=== PATIENT | male | born 1935 | race Caucasian/White ===

== ENCOUNTER → 2020-03-14 | Outpatient (CLI) | payer MEDICARE ==
--- NOTE | 2020-03-14 11:41 | RADIOLOGY REPORT (SQ) ---
EXAM DESCRIPTION: COOKIE SWALLOW IMAGES COMPLETED DATE/TIME: 03/14/2020 11:12 am REASON FOR STUDY: DYSPHAGIA (R13.10) Y84.4 ASPIRATION OF FLUID CAUSE ABN REACT/COMPL, W/O MISADVN R 13.10 DYSPHAGIA, UNSPECIFIED Parkinson's disease, CVA COMPARISON: None. TECHNIQUE: Videofluoroscopic swallowing examination was performed in conjunction with speech patholo gy. Videofluoroscopic imaging was obtained and reviewed and these are the findings: RADIATION DOSE: 5.3 minutes of fluoroscopy was used. 3 images saved to PACS. LIMITATIONS: None FINDINGS: The patient was brought into the fluoro room and placed upright on a modified barium swall ow chair. The patient was then given multiple consistencies mixed with barium to swallow under live fluoroscopic video guidance. According to the Speech Pathologist there was laryngeal penetration and aspiration of thin liquids. Post swallow residual contrast within the vallecular. Very weak and de layed swallow. IMPRESSION: LARYNGEAL PENETRATION AND ASPIRATION OF THIN LIQUIDS. PLEASE SEE SPEECH PATHOLOGIST REPO RT FOR OTHER FINDINGS AND RECOMMENDATIONS. COMMENT: Quality ID [id number]: Final reports for procedures using fluoroscopy that document radiation exp osure indices, or exposure time and number of fluorographic images (if radiation exposure indices are not available) TECHNICAL DOCUMENTATION: JOB ID: [id number] 2010 [employer]- All Rights Reserved Reading location - IP/workstation name: [email or web address] [id number]
--- NOTE | 2020-03-14 14:34 | ST Modified Barium Swallow ---
Recommendation - Recommendations Recommendations: Patient is at risk of aspiration on all textures due to poor postural alignment and decreased pressure generation on the swallow. At this time, recommend thin liquids (no straws) and mechanical soft solids with ground meats or puree. Patient had very poor chewing pattern and increased oral time with solids, puree may be more efficient. Frequent oral care also recommended to reduce risk of pneumonia from an aspiration event. Medical Diagnoses - Medical Diagnoses Medical Diagnosis Description & ICD-10 Code(s): dysphagia following CVA Other Medical Diagnoses/Co-Morbidities: per patient paperwork from facility: Parkinson's disease - ICD-10 Tx Diagnosis Coding (1) Dysphagia, unspecified ICD-10 Code(s): R13.10 - DYSPHAGIA, UNSPECIFIED (2) Dysphagia following cerebrovascular accident (CVA) ICD-10 Code(s): I69.391 - DYSPHAGIA FOLLOWING CEREBRAL INFARCTION ST Modified Barium Swallow - General Date: 03/14/20 Referring Physician: Dr. Melody Wilkinson Risks/Precautions: Falls, Aspiration Date of Onset: 03/14/20 - unknown onset Reason for Referral: hx of aspiration - History -: Medical - Patient arrived from facility with JIG BU[employer]DER HELPER and . Patient unable to provide medical history, was minimally able to provide history. Paperwork sent from the facility reports that the patient has Parkinson's disease, as well as history of stroke. He is currently nectar thick liquids and mechanical soft solids. The patient apparently had an episode of aspiration pneumonia. He has received speech therapy at his facility. Medications: per facility paperwork: aspirin, atorvastatin, carbidopa-levodopa, donepezil, finasteride Allergies: none reported - Functional Status Prior Functional Status: INDEPENDENT: feeding Current Functional Limitations: feeding - on modified diet - Subjective Patient/caregiver goal(s): better swallow Cognitive-Linguistic Function: Severely Impaired Speech Intelligibility: Non-verbal Current Nutritional Means: PO Current PO diet: Soft - mechanical, Thickened liquids - nectar Current symptoms: Hx of asp. pneumonia Pain: no signs/symptoms of pain - Objective Assessment: Upright, Left Lateral - patient has very poor posture, pharyngeal region was horizontal for study - Food Trials Used Food trials used: Thin liquids, Tangerine thick liquids, Pureed, Regular The patient: Required Assist - Oral-Motor Skills Dentition: Partial - Of note, patient had thick coating of what appeared to be dried secretions on teeth and inside of mouth. - Assessment Labial closure: Adequate Leakage: Anterior Mastication: Lengthy, Uncoordinated - Reduced chewing pattern seen with david cracker trial, bolus kept largely anterior, required sip of liquid to adequately propel posteriorly. Oral stage: Moderately Impaired - Pharyngeal Stage Reduced Velopharyngeal Closure: no Reduced pressure generation: Yes Pre-swallow pooling in valleculae: Moderate Pre-Swallow pooling in pyriforms: None Reduced Thyro-Hyoid approximation: Yes Reduced epiglottic excursion: Yes Reduced pharyngeal peristalsis/contraction: Yes Multiple Swallows with: Ineffective Clearance Post-swallow residulas vallecular: Significant Post-Swallow residuals in pyriforms: Mild Post-Swallow Residuals: throughout pharynx - Fall Risk Assessment Medications/Conditions that increase fall risks include: Antidepressants, sedatives, anti-arrhythmic, diuretic, benzodiazipenes, neuroleptics. BP regulation problems, cardiac problems, balance or gait deficits, neurological problems. Is patient considered at risk for falls: yes Fall Risk Actions Taken: No action needed - Treatment / Educational Needs: Treatment/Education Needs: Treatment consisted of patient education on the role of the Speech Pathologist. Patient's plan of care and golas were communicated as well as scheduling and attendance policies. Recommendations for initial home program were shared. Patient demonstrated understanding and verbalized agreement. - Impression/Summary Laryngeal Penetration: Yes - x1 with cup sip of thin liquid Tracheal Aspiration: yes - with straw sip of thin liquid Patient presents with: Oral stage dysphagia - moderate, Pharyngeal stage dysph. - moderate to severe Risk of Aspiration: Moderate Evaluation and Findings: Patient demonstrates poor swallowing coordination, reduced timing, and poor pharyngeal constriction. This resulted in significant valleculae residue after the swallow, with reduced ability to clear. Although the patient did penetrate thin liquid via cup x1, the patient had very significant residue of thick liquids (nectar) in the valleculae after the swallow, placing patient at higher risk of aspiration after the swallow. Thin liquids left very little residue comparatively. As texture increased, residue in the valleculae and pharynx increased as well. Aspiration only occured with straw sip of thin liquid, patient demonstrated strong cough response which appeared to clear aspirated material. Of note, the patient's posture also places him at higher risk of aspiration, as he holds his head very forward, leaving airway open for residue to enter after the swallow. - Recommendations Solid diet recommendations: Pureed, Mechanical Soft - to be determined by facility COURT LIAISON. Mechanical soft may be too effortful to hand based on findings this day. Liquid Diet Modification: Thin Strict aspiration precautions: Yes Pt/Family education and followup with MD: Yes Dysphagia therapy with COURT LIAISON: f/u with current thera. Recommended techniques: Fully Upright During Meal, Small Bites and Sips, Alternate Bites/Sips Supervision: requires assistance Information, Precautions and Recommendations: Family Member (Written), Family Member (Verbal) Other recommendations: Recommend frequent oral care be provided to reduce risk of aspiration of bact eria, which increases the risk of developing an aspiration pneumonia. - Time Total Time: 30 - Plan of Care Strategies to optimize patient understanding include:: ongoing assessment of educational needs, implementation of educational strategies, and re-education. - - -: Thank you for the opportunity to work with this patient and his/her family. Should you have any questions about this patient's plan or progress, I can be reached at [phone].
== END ==
LOC: RAD 08:00
PROVIDERS: ATTEND Family Medicine
DX: R13.10 Dysphagia, unspecified (principal); G20 Parkinson's disease; Z86.73 Personal history of transient ischemic attack (TIA), and cerebral infarction without residual deficits; Y84.4 Aspiration of fluid as the cause of abnormal reaction of the patient, or of later complication, without mention of misadventure at the time of the procedure
CPT/HCPCS: 74230

== ENCOUNTER → 2020-03-18 | Outpatient (CLI) | payer MEDICARE ==
[2020-03-18 19:36] LABS: HEMATOCRIT 50.8 % (37.9-51.0); MEAN CORPUSCULAR HEMOGLOBIN 29.4 pg (27.0-33.4); MEAN CORPUSCULAR HGB CONC 33.5 g/dL (32.0-36.0); MEAN CORPUSCULAR VOLUME 88 fl (80-97); PLATELET COUNT 198 10^3/uL (150-450); RED BLOOD COUNT 5.79 10^6/uL (4.35-5.55); RED CELL DISTRIBUTION WIDTH 15.2 % (11.5-14.0); WHITE BLOOD COUNT 18.6 10^3/uL (4.0-10.5)
[2020-03-18 19:43] LABS: APPEARANCE,URINE CLOUDY; BILIRUBIN,URINE NEGATIVE (NEGATIVE); COLOR,URINE YELLOW; GLUCOSE, URINE >=500 mg/dL (NEGATIVE); KETONES,URINE 20 mg/dL (NEGATIVE); LEUKOCYTE ESTERASE,URINE NEGATIVE (NEGATIVE); NITRITE,URINE NEGATIVE (NEGATIVE); PROTEIN,URINE NEGATIVE (NEGATIVE); URIC ACID CRYSTALS,URINE MODERATE /HPF; URINE SPECIFIC GRAVITY 1.028; UROBILINOGEN,URINE NEGATIVE mg/dL (<2.0)
[2020-03-18 19:48] LABS: ALBUMIN 3.8 g/dL (3.5-5.0); ALKALINE PHOSPHATASE 122 U/L (38-126); ANION GAP 10 (5-19); ASPARTATE AMINO TRANSFERASE 18 U/L (17-59); BILIRUBIN,DIRECT 0.4 mg/dL (0.0-0.4); BILIRUBIN,TOTAL 1.4 mg/dL (0.2-1.3); BLOOD UREA NITROGEN 64 mg/dL (7-20); CALCIUM 9.4 mg/dL (8.4-10.2); CARBON DIOXIDE 26 mmol/L (22-30); CHLORIDE 110 mmol/L (98-107); POTASSIUM 4.5 mmol/L (3.6-5.0); TOTAL PROTEIN 6.2 g/dL (6.3-8.2)
[2020-03-18 20:08] LABS: ABSOLUTE LYMPHOCYTES# (MANUAL) 0.9 10^3/uL (0.5-4.7); ABSOLUTE MONOCYTES # (MANUAL) 0.9 10^3/uL (0.1-1.4); ANISOCYTOSIS SLIGHT; BAND NEUTROPHILS % (MANUAL) 1 % (3-5); BASOPHILS % (MANUAL) 0 % (0-2); EOSINOPHILS % (MANUAL) 0 % (0-6); LYMPHOCYTES % (MANUAL) 5 % (13-45); MONOCYTES % (MANUAL) 5 % (3-13); PLATELET COMMENT ADEQUATE; SEGMENTED NEUTROPHILS % (MAN) 89 % (42-78); TOTAL CELLS COUNTED 100
[2020-03-19 02:02] LABS: GLUCOSE 482 mg/dL (75-110)
== END ==
LOC: PNR 19:23
PROVIDERS: ATTEND Family Medicine
DX: R50.9 Fever, unspecified (principal); R53.83 Other fatigue
CPT/HCPCS: 80053; 81001; 85025; 87086; 87088; 87186

== ENCOUNTER 2020-03-19 12:57 | Inpatient (IN) | payer MEDICARE ==
[2020-03-19] MEDS ORDERED: NORMAL SALINE 1000 ML 1,000 ML IV ONE (13:14)
[2020-03-19 13:23] LABS: HEMATOCRIT 52.4 % (37.9-51.0); HEMOGLOBIN 17.4 g/dL (13.5-17.0); MEAN CORPUSCULAR HEMOGLOBIN 29.4 pg (27.0-33.4); MEAN CORPUSCULAR HGB CONC 33.1 g/dL (32.0-36.0); MEAN CORPUSCULAR VOLUME 89 fl (80-97); PLATELET COUNT 212 10^3/uL (150-450); RED BLOOD COUNT 5.91 10^6/uL (4.35-5.55); RED CELL DISTRIBUTION WIDTH 15.5 % (11.5-14.0)
[2020-03-19 13:34] LABS: INTERNATIONAL RATION (INR) 1.14; PROTHROMBIN TIME 14.7 SEC (11.4-15.4)
[2020-03-19 13:36] LABS: VENOUS BLOOD HCO3 24.9 mmol/L (20-32); VENOUS BLOOD PCO2 34.5 mmHg (35-63); VENOUS BLOOD PH 7.48 (7.30-7.42)
[2020-03-19 13:41] LABS: ALBUMIN 3.6 g/dL (3.5-5.0); ALKALINE PHOSPHATASE 111 U/L (38-126); ANION GAP 6 (5-19); ASPARTATE AMINO TRANSFERASE 21 U/L (17-59); BILIRUBIN,TOTAL 0.7 mg/dL (0.2-1.3); BLOOD UREA NITROGEN 58 mg/dL (7-20); CALCIUM 9.4 mg/dL (8.4-10.2); CARBON DIOXIDE 27 mmol/L (22-30); CHLORIDE 122 mmol/L (98-107); GLUCOSE 311 mg/dL (75-110); POTASSIUM 3.7 mmol/L (3.6-5.0); TOTAL PROTEIN 6.1 g/dL (6.3-8.2)
[2020-03-19 13:48] LABS: ABSOLUTE LYMPHOCYTES# (MANUAL) 0.7 10^3/uL (0.5-4.7); ABSOLUTE MONOCYTES # (MANUAL) 1.7 10^3/uL (0.1-1.4); BASOPHILS % (MANUAL) 0 % (0-2); EOSINOPHILS % (MANUAL) 0 % (0-6); LYMPHOCYTES % (MANUAL) 2 % (13-45); MONOCYTES % (MANUAL) 10 % (3-13); SEGMENTED NEUTROPHILS % (MAN) 86 % (42-78); TOTAL CELLS COUNTED 100
[2020-03-19 13:49] LABS: ANISOCYTOSIS SLIGHT; PLATELET COMMENT ADEQUATE
[2020-03-19] MEDS ORDERED: ETOMIDATE INJ/PF 20 MG/10 ML SDV IV ONE ×2 (14:00→22:00)
[2020-03-19] MEDS ORDERED: ROCURONIUM BROMIDE INJ 50 MG/5 ML VIAL IV ONE ×2 (14:00→22:00)
[2020-03-19] MEDS ORDERED: IPRATROPIUM/ALBUTEROL 0.5-2.5 MG/3 ML AMPUL NEB PRN (14:05)
[2020-03-19] MEDS ORDERED: ONDANSETRON 4 MG TAB.RAPDIS PO PRN (14:05)
[2020-03-19] MEDS ORDERED: ACETAMINOPHEN 325 MG TABLET PO PRN (14:05)
[2020-03-19] MEDS ORDERED: NORMAL SALINE 1000 ML 2,000 ML IV ONE (14:05)
[2020-03-19] MEDS ORDERED: GLUCAGON,HUMAN RECOMB 1 MG INJ IM PRN (14:11)
[2020-03-19] MEDS ORDERED: DEXTROSE 40% GEL 15 GM TUBE PO PRN ×2 (14:11)
[2020-03-19] MEDS ORDERED: DEXTROSE 50%-WATER 25 GM/50 ML DISP.SYRIN IV PRN ×2 (14:11)
[2020-03-19] MEDS ORDERED: PHARMACY COMMUNICATION ORDER MC NR (14:15)
--- NOTE | 2020-03-19 14:20 | RADIOLOGY REPORT (SQ) ---
EXAM DESCRIPTION: CHEST SINGLE VIEW IMAGES COMPLETED DATE/TIME: 03/19/2020 2:09 pm REASON FOR STUDY: sepsis alert; intubation COMPARISON: None. TECHNIQUE: Single frontal radiographic view of the chest acquired. NUMBER OF VIEWS: One view. LIMITATIONS: None. FINDINGS: LUNGS AND PLEURA: No pneumothorax. No consolidation or pleural effusion. MEDIASTINUM AND HILAR STRUCTURES: Age-appropriate contour. HEART AND VASCULAR STRUCTURES: Heart normal size. BONES: No acute findings. HARDWARE: Endotracheal tube tip is approximately 2 cm above the level of the arleen. OTHER: Small eventration of the left hemidiaphragm. IMPRESSION: Endotracheal tube tip is approximately 2 cm above the level of the arleen. No consolidat ion or pleural effusion. TECHNICAL DOCUMENTATION: JOB ID: [id number] [id number] 2010 [employer]- All Rights Reserved Reading location - IP/workstation name: [email or web address]
[2020-03-19 14:23] LABS: APPEARANCE,URINE CLOUDY; BILIRUBIN,URINE NEGATIVE (NEGATIVE); COLOR,URINE YELLOW; GLUCOSE, URINE >=500 mg/dL (NEGATIVE); KETONES,URINE TRACE mg/dL (NEGATIVE); PROTEIN,URINE 30 mg/dL (NEGATIVE); URIC ACID CRYSTALS,URINE RARE /HPF; URINE SPECIFIC GRAVITY 1.024; UROBILINOGEN,URINE NEGATIVE mg/dL (<2.0)
--- NOTE | 2020-03-19 14:35 | CRITICAL CARE ADMISSION REPORT ---
HPI Date:: 03/19/20 Time:: 13:30 Reason for ICU Reason:: Intubated for airway protection Admission Date/Time & PCP: Admission Date/Time: Primary Care Provider: TRELL KENNEY MD HPI: This patient is from a local [place]. He has a hx of Parkinson's disease, demaentia (Parkinson's dementia?), DM-II, dehydration, aspiration by a recent MBS. Family says he has not eaten well for about a month. Comes to the ED with fever, obtundation, mottling, high BG and is intubated for airway protection. Family provides much info. They are aware of how sick he is and that this could be a final illness. As such they are fine with intubation for now, no CPR or defibrillation. Hold treatment as is. They will try to find his living will. History obtained from:: ED MD Herrera, old records, family - Diagnosis/Plan (1) Dehydration Is this a current diagnosis for this admission?: Yes Plan: He is extremely dehydrated causing mottling of extremities and obtundation. (2) Airway compromise Is this a current diagnosis for this admission?: Yes Plan: His GCS is 3 and is intubated. (3) ARF (acute renal failure) Qualifiers: Acute renal failure type: unspecified Qualified Code(s): N17.9 - Acute kidney failure, unspecified Is this a current diagnosis for this admission?: Yes Plan: His BZUN is 58, Cr 1.3. He is emaciated and at age 84 this is likely significant. (4) Diabetes type 2, uncontrolled Qualifiers: Glycemic state: with hyperglycemia Qualified Code(s): E11.65 - Type 2 diabetes mellitus with hyperglycemia Is this a current diagnosis for this admission?: Yes Plan: His BG yesterday was 442. Not done yet today. (5) Dysphagia, unspecified Qualifiers: Dysphagia type: pharyngeal phase Qualified Code(s): R13.13 - Dysphagia, p haryngeal phase Is this a current diagnosis for this admission?: Yes Plan: Recent MBS suggested aspiration. Common with Parkinson's will start NG TF. Plan Summary: The family is accepting of intubation. He is otherwise DNR. I have explained this could be a terminal illness. He needs much fluid. Insulin, nutrition and may still not do well. Past Medical History Cardiac Medical History: Reports: Hypertension - not lately Denies: Myocardial Infarction Pulmonary Medical History: Denies: Asthma Neurological Medical History: Denies: Seizures GI Medical History: Denies: Hepatitis, Hiatal Hernia Hematology: Denies: Anemia, Sickle Cell Disease Past Surgical History Past Surgical History: Denies: Pacemaker Social/Family History - Social History Lives with: [facility] Smoking Status: Unknown if Ever Smoked Frequency of Alcohol Use: None Hx Recreational Drug Use: No - Medication/Allergies Home Medications: Atorvastatin Calcium 40 mg PO DAILY 12/23/14 Finasteride 5 mg PO DAILY 12/23/14 Glipizide [Glipizide ER] 10 mg PO DAILY 12/23/14 Lisinopril 5 mg PO DAILY 12/23/14 Sitagliptin Phos/Metformin HCl [Janumet 50-500 mg Tablet] 1 each PO BID 12/23/14 Allergies/Adverse Reactions: No Known Allergies Allergy (Unverified 12/23/14 10:01) Review of Systems ROS unobtainable: Due to mental status Physical Exam Vital Signs: Temp Pulse Resp BP Pulse Ox 101.2 F H 126 H 14 128/74 H 100 03/19/20 13:22 03/19/20 13:22 03/19/20 14:05 03/19/20 14:05 03/19/20 14:05 Intake & Output 03/18/20 03/19/20 03/20/20 06:59 06:59 06:59 Weight 60.4 kg Weight/Height Weight 60.4 kg General appearance: PRESENT: thin, other - Obtunded Head exam: PRESENT: atraumatic, normocephalic Eye exam: PRESENT: conjunctiva pink, EOMI, PERRLA. ABSENT: scleral icterus Ear exam: PRESENT: normal external ear exam Mouth exam: PRESENT: dry mucosa, other - Much dried food particles blocking glottic area. Teeth exam: PRESENT: dental caries, edentulous - Upper. Respiratory exam: PRESENT: clear to auscultation osmani Cardiovascular exam: PRESENT: RRR, tachycardia. ABSENT: diastolic murmur, rubs, systolic murmur GI/Abdominal exam: PRESENT: normal bowel sounds, soft. ABSENT: distended, guarding, mass, organolmegaly, rebound, tenderness Rectal exam: PRESENT: deferred Gentrourinary exam: PRESENT: indwelling catheter Extremities exam: PRESENT: other - Emaciated with poor muscle mass. Neurological exam: PRESENT: altered, CN II-XII grossly intact, other - Obtunded. Skin exam: PRESENT: mottled - Mottling in knees, feet, arms Tubes/Lines: PRESENT: Endotracheal Tube, Nasogastic Tube Laboratory/Radiographs Laboratory Results: 03/19/20 13:07 03/19/20 13:07 03/19/20 03/19/20 03/19/20 13:07 13:07 13:07 WBC 17.0 H RBC 5.91 H Hgb 17.4 H Hct 52.4 H MCV 89 MCH 29.4 MCHC 33.1 RDW 15.5 H Plt Count 212 Seg Neutrophils % Not Reportable VBG pH 7.48 H VBG pCO2 34.5 L VBG HCO3 24.9 VBG Base Excess 2.0 Sodium 154.5 H Potassium 3.7 Chloride 122 H Carbon Dioxide 27 Anion Gap 6 BUN 58 H Creatinine 1.27 H Est GFR ( Amer) > 60 Glucose 311 H Lactic Acid Calcium 9.4 Total Bilirubin 0.7 AST 21 Alkaline Phosphatase 111 Total Protein 6.1 L Albumin 3.6 Lipase 454.4 H 03/19/20 13:07 WBC RBC Hgb Hct MCV MCH MCHC RDW Plt Count Seg Neutrophils % VBG pH VBG pCO2 VBG HCO3 VBG Base Excess Sodium Potassium Chloride Carbon Dioxide Anion Gap BUN Creatinine Est GFR ( Amer) Glucose Lactic Acid 2.2 H Calcium Total Bilirubin AST Alkaline Phosphatase Total Protein Albumin Lipase 03/19/20 13:07 Troponin I 0.053 Impressions: Extreme dehydration, poor mental status. Possible terminal illness. All labs, radiographs, diagnostic studies and EKGs were personally reviewed: No In addition, reports of radiographic and diagnostic studies were read: No Critical Time Critical Time (minutes): 40 -: The care of a critically ill patient is dynamic. This note represents a static moment in the admission process. Orders and treatments may be given simultaneously and urgently, and time is not retention representative of the treatment process. This patient requires Critical Care secondary to life threatening organ or limb dysfunction. Without Critical Care services, the patient is at risk for increased mortality and morbidity.
--- NOTE | 2020-03-19 14:37 | Progress Note ---
Provider Note Provider Note: Patient intubated with # 7.5 ETT at 24 cm at the lips. Etomidate 10mg and rocuronium 40mg.
[2020-03-19] MEDS: RINGERS SOLUTION,LACTATED 1,000 ML IV PRN (14:53)
[2020-03-19] MEDS: PROPOFOL 1,000 MG/100 ML INFUS..BTL IV PRN (15:02)
--- NOTE | 2020-03-19 15:17 | ER Document Report ---
Entered by MIRANDA ROBLES SCRIBE 03/19/20 1410 Acting as scribe for:ZAY ALLEN MD ED General - General Chief Complaint: Altered Mental Status Stated Complaint: ALTERED MENTAL STATUS/FEVER Information source: Emergency Med Personnel Cannot obtain history due to: Altered mental status Notes: This 84 year old male patient presents to the emergency department today with arrival by EMS. History provided by outside records and EMS personnel due to patient's mental status. Patient lives in a nursing facility and was reported to be lethargic yesterday. Patient was given Rocephin and Tylenol by the nursing facility staff. Patient had a chest x-ray yesterday with negative results, and lab work done, including a white count of 1800 and creatinine of 1.3. Patient has a history of dementia, Parkinson's, and strokes. Patient arrived by EMS and became unresponsive en route with x2 apnea episodes. Patient has also been more bed bound recently. TRAVEL OUTSIDE OF THE [place] IN LAST 30 DAYS: No - Related Data Allergies/Adverse Reactions: No Known Allergies Allergy (Unverified 12/23/14 10:01) Past Medical History - General Information source: Emergency Med Personnel, [facility] Records Cannot obtain history due to: Altered mental status - Social History Smoking Status: Unknown if Ever Smoked Frequency of alcohol use: None Drug Abuse: None Lives with: Skilled Nursing Family History: Reviewed & Not Pertinent - Past Medical History Cardiac Medical History: Reports: Hx Hypertension - not lately Neurological Medical History: Reports: Hx Cerebrovascular Accident, Hx Parkinson's Disease Endocrine Medical History: Reports: Hx Diabetes Mellitus Type 1 Psychiatric Medical History: Reports: Hx Dementia Review of Systems - Review of Systems -: Yes ROS unobtainable due to patient's medical condition Physical Exam - Vital signs Vitals: Resp BP Pulse Ox 30 H 119/95 H 92 03/19/20 12:57 03/19/20 12:57 03/19/20 12:57 - General Notes: Patient is afebrile. Patient intubated by Dr. Escobedo. - HEENT Head: Normocephalic, Atraumatic Eyes: Normal Pupils: Pinpoint Mucous membranes: Dry Notes: Dry, thick, brown food found blocking the oropharynx. - Respiratory Chest status: Nontender Notes: Lungs are clear to auscultation bilaterally. Oxygen saturation on room air is 92%. - Cardiovascular Rhythm: Regular Heart sounds: Normal auscultation Murmur: No - Abdominal Inspection: Other - Soft Distension: No distension Tenderness: Nontender - Genitourinary Notes: Urine from urinary cath is dark. - Extremities General upper extremity: Normal inspection. No: Edema General lower extremity: Normal inspection. No: Edema - Neurological Notes: Patient has a history of Parkinson's and Dementia. Patient was briefly aroused by extreme stimuli. - Skin Skin Temperature: Warm Skin Moisture: Dry Skin Color: Normal Course - Re-evaluation Re-evalutation: 03/19/20 15:02 Patient is comatose and most difficult to arouse. Patient is having shallow respirations maintaining a sat of 92% at this time. Noxious stimuli with sternal rub does not appear to arouse patient. Discussed with Dr. Ochoa, head animal keeper, who recommended if patient is unable to to manage his airway then he must be intubated for airway protection in the face of a full code patient. Patient improved his sats up to 97 percent after stimulation with stronger noxious stimulus on chest wall. However patient still remain comatose and and therefore intubation was performed by Dr. Ochoa. Of note noted during the intubation by Dr. Gallego patient had concretions of pured food that had amounted over a period of time in the posterior oropharynx that had dried up and adhesed to his oral pharyngeal mucosa. A pair of Bing forceps was needed in order to remove debris in order to see the epiglottic opening. 03/19/20 15:05 - Vital Signs Vital signs: Temp Pulse Resp BP Pulse Ox 101.2 F H 126 H 14 121/81 99 03/19/20 13:22 03/19/20 13:22 03/19/20 14:40 03/19/20 14:40 03/19/20 14:40 - Laboratory Result Diagrams: 03/19/20 13:07 03/19/20 13:07 Laboratory results interpreted by me: 03/19/20 03/19/20 03/19/20 13:07 13:07 13:07 WBC 17.0 H RBC 5.91 H Hgb 17.4 H Hct 52.4 H RDW 15.5 H Seg Neuts % (Manual) 86 H Lymphocytes % (Manual) 2 L Abs Neuts (Manual) 14.6 H Abs Monocytes (Manual) 1.7 H VBG pH 7.48 H VBG pCO2 34.5 L Sodium 154.5 H Chloride 122 H BUN 58 H Creatinine 1.27 H Est GFR (MDRD) Non-Af 54 L Glucose 311 H Lactic Acid Total Protein 6.1 L Lipase 454.4 H Urine Protein Urine Glucose (UA) Urine Ketones Urine Blood 03/19/20 03/19/20 13:07 14:04 WBC RBC Hgb Hct RDW Seg Neuts % (Manual) Lymphocytes % (Manual) Abs Neuts (Manual) Abs Monocytes (Manual) VBG pH VBG pCO2 Sodium Chloride BUN Creatinine Est GFR (MDRD) Non-Af Glucose Lactic Acid 2.2 H Total Protein Lipase Urine Protein 30 H Urine Glucose (UA) >=500 H Urine Ketones TRACE H Urine Blood SMALL H 03/19/20 15:04 Patient laboratories show an elevated white blood cell count of 17,000 hemoglobin 17 hematocrit 52 hemoconcentrated with a sodium of 154 a BUN of 58 and a creatinine 1.2 lipase 454 lactic acid 2.2 a small amount of blood noted in the urine. 03/19/20 15:08 Patient also has an elevated troponin consistent with troponin leak during the failure to thrive state that patient is in this time. - Diagnostic Test Radiology reviewed: Image reviewed, Reports reviewed Radiology results interpreted by me: 03/19/20 15:06 Chest x-ray shows no acute process no evidence for infiltrate noted. ET tube in position. - EKG Interpretation by Me Additional EKG results interpreted by me: 03/19/20 15:07 12-lead EKG shows sinus tachycardia rate of 135 with an irregular rate 114 and 165 borderline left axis deviation and repull abnormality probably rate related. Critical Care Note - Critical Care Note Total time excluding time spent on procedures (mins): 35 - Immediate response to patient's arrival to determine patient's respiratory status and decisions about intubation. Patient neurologically comatose and barely arousable with concerns for stroke dehydration infection loss of blood etc. Coordination with the head animal keeper Dr. Ching regarding intubation the patient and discussing with family members CODE STATUS. Discharge - Discharge Clinical Impression: Failure to thrive in adult, Respiratory failure requiring intubation, Dehydration, Airway compromise Diabetes type 2, uncontrolled Qualifiers: Glycemic state: with hyperglycemia Qualified Code(s): E11.65 - Type 2 diabetes mellitus with hyperglycemia ARF (acute renal failure) Qualifiers: Acute renal failure type: unspecified Qualified Code(s): N17.9 - Acute kidney failure, unspecified Condition: Critical Disposition: ADMITTED INPATIENT Admitting Provider: Gergg ([facility] Boarding [facility]) - Awake from not scheduled Unit Admitted: ICU I personally performed the services described in the documentation, reviewed and edited the documentation which was dictated to the scribe in my presence, and it accurately records my words and actions.
[2020-03-19] MEDS: PANTOPRAZOLE SODIUM 40 MG VIAL IV SCH (15:30)
[2020-03-19] MEDS: HEPARIN SOD (PORCINE) 5,000 UNIT/ML 1 ML VIAL SUBCUT SCH ×2 (15:30→21:10)
[2020-03-19] MEDS: INSULIN LISPRO 100 UNIT/ML 3 ML VIAL SUBCUT SCH ×2 (15:31→18:08)
[2020-03-19] MEDS ORDERED: INSULIN LISPRO 100 UNIT/ML 3 ML VIAL ONE (15:35)
[2020-03-19 15:58] LABS: ARTERIAL BLOOD BASE EXCESS -0.6 mmol/L; ARTERIAL BLOOD FIO2 30%; ARTERIAL BLOOD H2CO3 1.12 mmol/L (1.05-1.35); ARTERIAL BLOOD HCO3 23.5 mmol/L (20-24); ARTERIAL BLOOD O2 SATURATION 97.7 % (94-98); ARTERIAL BLOOD PCO2 37.2 mmHg (35-45); ARTERIAL BLOOD PH 7.42 (7.35-7.45); ARTERIAL BLOOD PO2 100.7 mmHg (80-100); ARTERIAL BLOOD TOTAL CO2 24.6 mmol/L (23-27)
--- NOTE | 2020-03-19 19:10 | EKG REPORT ---
SEVERITY:- ABNORMAL ECG - SINUS TACHYCARDIA WITH PACS [id number] BORDERLINE LEFT AXIS DEVIATION REPOLARIZATION ABNORMALITY, PROB RATE RELATED : Confirmed by: Leander Camara MD 19-Mar-2020 19:09:52
[2020-03-20] MEDS: RINGERS SOLUTION,LACTATED 1,000 ML IV PRN ×3 (00:48→16:51)
[2020-03-20] MEDS: INSULIN LISPRO 100 UNIT/ML 3 ML VIAL SUBCUT SCH ×4 (00:49→18:09)
[2020-03-20 04:44] LABS: ABSOLUTE BASOPHILS # (AUTO) 0.1 10^3/uL (0.0-0.2); ABSOLUTE LYMPHOCYTES (AUTO) 0.7 10^3/uL (0.5-4.7); ABSOLUTE MONOCYTES (AUTO) 1.3 10^3/uL (0.1-1.4); ABSOLUTE NEUT (AUTO) 9.6 10^3/uL (1.7-8.2); BASOPHILS % (AUTO) 0.5 % (0-2); EOSINOPHILS % (AUTO) 0.2 % (0-6); HEMATOCRIT 42.9 % (37.9-51.0); MEAN CORPUSCULAR HEMOGLOBIN 29.6 pg (27.0-33.4); MEAN CORPUSCULAR HGB CONC 33.5 g/dL (32.0-36.0); MEAN CORPUSCULAR VOLUME 88 fl (80-97); MONOCYTES % (AUTO) 10.8 % (3-13); PLATELET COUNT 120 10^3/uL (150-450); RED BLOOD COUNT 4.86 10^6/uL (4.35-5.55); RED CELL DISTRIBUTION WIDTH 15.1 % (11.5-14.0); SEGMENTED NEUTROPHILS % (AUTO) 82.5 % (42-78); TOTAL CELLS COUNTED % (AUTO) 100 %; WHITE BLOOD COUNT 11.6 10^3/uL (4.0-10.5)
[2020-03-20 04:46] LABS: HEMOGLOBIN 14.4 g/dL (13.5-17.0)
[2020-03-20 05:07] LABS: BLOOD UREA NITROGEN 39 mg/dL (7-20); CALCIUM 8.5 mg/dL (8.4-10.2); GLUCOSE 228 mg/dL (75-110); POTASSIUM 3.1 mmol/L (3.6-5.0)
[2020-03-20 05:13] LABS: CARBON DIOXIDE 25 mmol/L (22-30); CHLORIDE 126 mmol/L (98-107)
[2020-03-20] MEDS: HEPARIN SOD (PORCINE) 5,000 UNIT/ML 1 ML VIAL SUBCUT SCH ×3 (05:19→21:25)
[2020-03-20 05:22] LABS: ANION GAP 3 (5-19)
[2020-03-20] MEDS: POTASSI CL 20 MEQ/50 ML RIDER 20 MEQ/50 ML RTUPB IV SCH ×2 (06:11→08:42)
--- NOTE | 2020-03-20 07:02 | RADIOLOGY REPORT (SQ) ---
EXAM DESCRIPTION: X-ray single view chest. CLINICAL HISTORY: 84 years Male, Respiratory Failure COMPARISON: 03/19/2020 TECHNIQUE: Single portable x-ray view of the chest performed on 03/20/2020 at 6:09 AM FINDINGS: The lungs are well expanded. No airspace process is identified. There is minimal scarring or atelectasis in the right lung base. There is no evidence of a pneumothorax. The cardiac silhouette is normal in size and configuration. The mediastinal contours are normal. No acute osseous abnormality is identified. There are degenerative changes of both shoulders, greater on the right. No focal soft tissue abnormalities are seen. Oral contrast is noted in the colon. Lines and tubes: The tip of the endotracheal tube terminates in the trachea just above the arleen. IMPRESSION: 1. Minimal scarring or atelectasis in the right lung base. 2. Endotracheal tube tip terminates just above the arleen.
[2020-03-20] MEDS ORDERED: ACETAMINOPHEN 325 MG TABLET NG PRN (09:30)
[2020-03-20] MEDS ORDERED: ONDANSETRON 4 MG TAB.RAPDIS NG PRN (09:30)
[2020-03-20] MEDS: PANTOPRAZOLE SODIUM 40 MG VIAL IV SCH (10:10)
--- NOTE | 2020-03-20 10:42 | CDI QUERY ---
CDI Query CDI Review: Dear Provider Please further specify reason for intubation: RESPIRATORY FAILURE? RESPIRATORY DISTRESS? IMPENDING RESPIRATORY FAILURE? RESPIRATORY COLLAPSE? Clinical data: intubation GCS 3 profound obtundation aspiration Thanks, Babita Hunt [phone]
--- NOTE | 2020-03-20 13:45 | RADIOLOGY REPORT (SQ) ---
EXAM DESCRIPTION: KUB/ABDOMEN (SINGLE VIEW) IMAGES COMPLETED DATE/TIME: 03/20/2020 1:38 pm REASON FOR STUDY: NG tube placement COMPARISON: EARLIER THE SAME DAY. NUMBER OF VIEWS: One view. TECHNIQUE: Supine radiographic image of the abdomen acquired. LIMITATIONS: None. FINDINGS: LIMITED VIEW THE ABDOMEN WAS SUBMITTED FOR NG TUBE PLACEMENT. THE NG TUBE TIP LIES JUST B ELOW THE LEFT HEMIDIAPHRAGM. IT APPEARS TO BE LOOPED IN THE BODY OF THE STOMACH. IMPRESSION: NG TUBE DESCRIBED. TECHNICAL DOCUMENTATION: JOB ID: [id number] 2010 [employer]- All Rights Reserved Reading location - IP/workstation name: [email or web address]
--- NOTE | 2020-03-20 13:50 | RADIOLOGY REPORT (SQ) ---
EXAM DESCRIPTION: KUB/ABDOMEN (SINGLE VIEW) IMAGES COMPLETED DATE/TIME: 03/20/2020 1:40 pm REASON FOR STUDY: Check Placement of NG Tube COMPARISON: None. NUMBER OF VIEWS: One view. TECHNIQUE: Supine radiographic image of the abdomen acquired. LIMITATIONS: None. FINDINGS: Limited view the abdomen is obtained for NG tube placement. NG tube tip lies in the mid t he distal esophagus an will need to be advanced prior to use. There is contrast in the visualize:. Endotracheal tube is directed toward the right mainstem bronchus. IMPRESSION: NG tube needs to be repositioned as described. TECHNICAL DOCUMENTATION: JOB ID: [id number] 2010 [employer]- All Rights Reserved Reading location - IP/workstation name: [email or web address]
[2020-03-20] MEDS: PROPOFOL 1,000 MG/100 ML INFUS..BTL IV PRN (15:53)
--- NOTE | 2020-03-20 18:34 | PDOC CRITICAL CARE PROG REPORT ---
General Date:: 03/20/20 ICU Day:: 2 Ventilator Day:: 2 Hospital Day:: 2 Resuscitation Status: Do Not Resuscitate Events in the past 12 to 24 Hours:: 03/20: [facility] with a suspected aspiration event. Intubated. Of note, family declared that the patient was DNR. If he is able to liberate from mechanical ventilatory support, this will be a one-way extubation. Sedated with propofol. Mildly hypotensive but maintaining MAP greater than 70. Review of systems relevant to events:: Constitutional/renal: Dehydration, acute renal failure Respiratory: Aspiration pneumonia, airway compromise Endocrine: Type 2 diabetes Neurologic: Parkinson's disease with dementia Reason for ICU Addmission:: Intubated for airway protection - Medications: Medications reviewed and adjusted accordingly: Yes Sedation:: Propofol Physical Exam Vital Signs: Temp Pulse Resp BP Pulse Ox 99.0 F 97 19 112/82 93 03/19/20 18:13 03/19/20 19:30 03/20/20 10:24 03/20/20 10:24 03/20/20 10:24 Intake & Output 03/19/20 03/20/20 03/21/20 06:59 06:59 06:59 Intake Total 4044 70 Output Total 635 40 Balance 3409 30 Weight 60.8 kg Weight/Height Weight 60.8 kg Height 1.8 m General appearance: PRESENT: no acute distress, well-developed, well-nourished Head exam: PRESENT: atraumatic, normocephalic Eye exam: PRESENT: conjunctiva pink, EOMI, PERRLA. ABSENT: scleral icterus Mouth exam: PRESENT: dry mucosa, tongue midline Neck exam: ABSENT: carotid bruit, JVD, lymphadenopathy, thyromegaly Respiratory exam: PRESENT: prolonged expiratory phas, rales, rhonchi. ABSENT: accessory muscle use Cardiovascular exam: PRESENT: RRR. ABSENT: diastolic murmur, rubs, systolic murmur Pulses: PRESENT: normal dorsalis pedis pul GI/Abdominal exam: PRESENT: normal bowel sounds, soft. ABSENT: distended, guarding, mass, organolmegaly, rebound, tenderness Gentrourinary exam: PRESENT: indwelling catheter Extremities exam: PRESENT: full ROM. ABSENT: calf tenderness, clubbing, pedal edema Neurological exam: PRESENT: reflexes normal, CN II-XII grossly intact, motor sensory deficit - Does not follow commands at the left upper extremity. Skin exam: PRESENT: dry, intact, other - Scattered patches of blanchable purpura, particularly at the extremities (most notable at the knees, shins and feet). ABSENT: cyanosis, rash, warm Tubes/Lines: PRESENT: Endotracheal Tube Laboratory/Radiographs Laboratory Results: 03/20/20 04:23 03/20/20 04:23 03/19/20 03/19/20 03/19/20 13:07 13:07 13:07 WBC 17.0 H RBC 5.91 H Hgb 17.4 H Hct 52.4 H MCV 89 MCH 29.4 MCHC 33.1 RDW 15.5 H Plt Count 212 Seg Neutrophils % Not Reportable Carbonic Acid HCO3/H2CO3 Ratio ABG pH ABG pCO2 ABG pO2 ABG HCO3 ABG O2 Saturation ABG Base Excess VBG pH 7.48 H VBG pCO2 34.5 L VBG HCO3 24.9 VBG Base Excess 2.0 FiO2 Sodium 154.5 H Potassium 3.7 Chloride 122 H Carbon Dioxide 27 Anion Gap 6 BUN 58 H Creatinine 1.27 H Est GFR ( Amer) > 60 Glucose 311 H Lactic Acid Calcium 9.4 Total Bilirubin 0.7 AST 21 Alkaline Phosphatase 111 Total Protein 6.1 L Albumin 3.6 Triglycerides Lipase 454.4 H Urine Color Urine Appearance Urine pH Ur Specific [place] Urine Protein Urine Glucose (UA) Urine Ketones Urine Blood Urine RBC (Auto) 03/19/20 03/19/20 03/19/20 13:07 13:07 14:04 WBC RBC Hgb Hct MCV MCH MCHC RDW Plt Count Seg Neutrophils % Carbonic Acid HCO3/H2CO3 Ratio ABG pH ABG pCO2 ABG pO2 ABG HCO3 ABG O2 Saturation ABG Base Excess VBG pH VBG pCO2 VBG HCO3 VBG Base Excess FiO2 Sodium Potassium Chloride Carbon Dioxide Anion Gap BUN Creatinine Est GFR ( Amer) Glucose Lactic Acid 2.2 H Calcium Total Bilirubin AST Alkaline Phosphatase Total Protein Albumin Triglycerides 144 Lipase Urine Color YELLOW Urine Appearance CLOUDY Urine pH 5.0 Ur Specific [place] 1.024 Urine Protein 30 H Urine Glucose (UA) >=500 H Urine Ketones TRACE H Urine Blood SMALL H Urine RBC (Auto) 1 03/19/20 03/19/20 03/19/20 15:40 15:45 18:30 WBC RBC Hgb Hct MCV MCH MCHC RDW Plt Count Seg Neutrophils % Carbonic Acid 1.12 HCO3/H2CO3 Ratio 20:1 ABG pH 7.42 ABG pCO2 37.2 ABG pO2 100.7 H ABG HCO3 23.5 ABG O2 Saturation 97.7 ABG Base Excess -0.6 VBG pH VBG pCO2 VBG HCO3 VBG Base Excess FiO2 30% Sodium Potassium Chloride Carbon Dioxide Anion Gap BUN Creatinine Est GFR ( Amer) Glucose Lactic Acid 2.1 2.1 Calcium Total Bilirubin AST Alkaline Phosphatase Total Protein Albumin Triglycerides Lipase Urine Color Urine Appearance Urine pH Ur Specific [place] Urine Protein Urine Glucose (UA) Urine Ketones Urine Blood Urine RBC (Auto) 03/20/20 03/20/20 04:23 04:23 WBC 11.6 H RBC 4.86 Hgb 14.4 D Hct 42.9 MCV 88 MCH 29.6 MCHC 33.5 RDW 15.1 H Plt Count 120 L Seg Neutrophils % 82.5 H Carbonic Acid HCO3/H2CO3 Ratio ABG pH ABG pCO2 ABG pO2 ABG HCO3 ABG O2 Saturation ABG Base Excess VBG pH VBG pCO2 VBG HCO3 VBG Base Excess FiO2 Sodium 153.8 H Potassium 3.1 L Chloride 126 H Carbon Dioxide 25 Anion Gap 3 L BUN 39 H Creatinine 0.98 Est GFR ( Amer) > 60 Glucose 228 H Lactic Acid Calcium 8.5 Total Bilirubin AST Alkaline Phosphatase Total Protein Albumin Triglycerides Lipase Urine Color Urine Appearance Urine pH Ur Specific [place] Urine Protein Urine Glucose (UA) Urine Ketones Urine Blood Urine RBC (Auto) 03/19/20 03/20/20 13:07 04:23 Troponin I 0.053 NT-Pro-B Natriuret Pep 539 H Impressions: Chest X-Ray 03/20/20 06:00 IMPRESSION: 1. Minimal scarring or atelectasis in the right lung base. 2. Endotracheal tube tip terminates just above the arleen. All labs, radiographs, diagnostic studies and EKGs were personally reviewed: Yes In addition, reports of radiographic and diagnostic studies were read: Yes Assessment and Plan - Diagnosis (1) Respiratory failure requiring intubation Is this a current diagnosis for this admission?: Yes Plan: Continue duo nebs. Tracheal aspirate for Gram stain, C/S. Start Zosyn/vancomycin for empiric coverage of aspiration. Increase PEEP to 8. (2) Abnormal chest x-ray Is this a current diagnosis for this admission?: Yes Plan: Atelectasis versus infiltrate in the right lung base. (3) Elevated troponin I level Is this a current diagnosis for this admission?: Yes Plan: Trend troponin. (4) Elevated brain natriuretic peptide (BNP) level Is this a current diagnosis for this admission?: Yes Plan: 2D echo. (5) ARF (acute renal failure) Qualifiers: Acute renal failure type: unspecified Qualified Code(s): N17.9 - Acute kidney failure, unspecified Is this a current diagnosis for this admission?: Yes Plan: Monitor urine output. Avoid nephrotoxic medications. Renal dosing as needed. (6) Dehydration with hypernatremia Is this a current diagnosis for this admission?: Yes Plan: Improved. Hold LR @ 100 mL/h. (7) Thrombocytopenia Is this a current diagnosis for this admission?: Yes Plan: Monitor platelets. Thrombocytopenia did develop after initiation of heparin for DVT prophylaxis. (8) Diabetes type 2, uncontrolled Qualifiers: Glycemic state: with hyperglycemia Qualified Code(s): E11.65 - Type 2 diabetes mellitus with hyperglycemia Is this a current diagnosis for this admission?: Yes (9) Hypokalemia Is this a current diagnosis for this admission?: Yes Plan: Replete. NG/OG tube placement to allow enteral potassium supplements. (10) Person under investigation for COVID-19 Is this a current diagnosis for this admission?: Yes Critical Time Critical Time (minutes): 60 Level of Care: ICU -: 1. The care of a critical patient is a dynamic process. This note is a sales representative metals synopsis but static in nature. The timeframe for treatments given in order is not necessarily the actual time these treatments may have been done. 2. This patient requires critical care secondary to ongoing requirements for therapy not offered or safe outside the critical care environment. Transfer to a lower level of care will result in altered life or limb morbidity and mortality. 3. Multidisciplinary rounds completed. 4. ABCDE bundle addressed.
[2020-03-21] MEDS: HEPARIN SOD (PORCINE) 5,000 UNIT/ML 1 ML VIAL SUBCUT SCH ×3 (05:15→21:13)
[2020-03-21] MEDS: INSULIN LISPRO 100 UNIT/ML 3 ML VIAL SUBCUT SCH ×4 (05:18→18:04)
[2020-03-21 05:57] LABS: ABSOLUTE EOSINOPHILS # (AUTO) 0.1 10^3/uL (0.0-0.6); ABSOLUTE LYMPHOCYTES (AUTO) 0.7 10^3/uL (0.5-4.7); ABSOLUTE MONOCYTES (AUTO) 0.8 10^3/uL (0.1-1.4); ABSOLUTE NEUT (AUTO) 7.3 10^3/uL (1.7-8.2); BASOPHILS % (AUTO) 0.4 % (0-2); EOSINOPHILS % (AUTO) 1.7 % (0-6); HEMATOCRIT 40.2 % (37.9-51.0); HEMOGLOBIN 13.3 g/dL (13.5-17.0); LYMPHOCYTES % (AUTO) 7.6 % (13-45); MEAN CORPUSCULAR HEMOGLOBIN 29.4 pg (27.0-33.4); MEAN CORPUSCULAR HGB CONC 33.1 g/dL (32.0-36.0); MEAN CORPUSCULAR VOLUME 89 fl (80-97); MONOCYTES % (AUTO) 9.1 % (3-13); PLATELET COUNT 112 10^3/uL (150-450); RED BLOOD COUNT 4.53 10^6/uL (4.35-5.55); RED CELL DISTRIBUTION WIDTH 15.1 % (11.5-14.0); SEGMENTED NEUTROPHILS % (AUTO) 81.2 % (42-78); TOTAL CELLS COUNTED % (AUTO) 100 %
[2020-03-21] MEDS ORDERED: PIPERACILLIN/TAZOBACTAM 4.5 GM VIAL IV SCH (06:00)
[2020-03-21] MEDS ORDERED: CARBIDOPA/LEVODOPA 25-100 MG TABLET PO SCH (06:00)
[2020-03-21] MEDS ORDERED: PIPERACILLIN/TAZOBACTAM 4.5 GM VIAL IV ONE (06:03)
[2020-03-21 06:16] LABS: BLOOD UREA NITROGEN 31 mg/dL (7-20); GLUCOSE 221 mg/dL (75-110); PHOSPHORUS 2.7 mg/dL (2.5-4.5); POTASSIUM 3.3 mmol/L (3.6-5.0)
[2020-03-21 06:21] LABS: CARBON DIOXIDE 28 mmol/L (22-30); CHLORIDE 121 mmol/L (98-107)
[2020-03-21 06:33] LABS: ARTERIAL BLOOD BASE EXCESS 0.6 mmol/L; ARTERIAL BLOOD FIO2 30%; ARTERIAL BLOOD H2CO3 1.05 mmol/L (1.05-1.35); ARTERIAL BLOOD O2 SATURATION 98.2 % (94-98); ARTERIAL BLOOD PCO2 34.9 mmHg (35-45); ARTERIAL BLOOD PH 7.46 (7.35-7.45); ARTERIAL BLOOD PO2 107.7 mmHg (80-100); ARTERIAL BLOOD TOTAL CO2 25.1 mmol/L (23-27)
[2020-03-21] MEDS: PIPERACILLIN SODIUM/TAZOBACTAM 4.5 GM in NORMAL SALINE 100 ML IV SCH ×3 (06:48→21:13)
[2020-03-21 06:57] LABS: ANION GAP 2 (5-19)
[2020-03-21] MEDS: POTASSI CL 20 MEQ/50 ML RIDER 20 MEQ/50 ML RTUPB IV SCH ×2 (08:24→12:25)
[2020-03-21] MEDS: PROPOFOL 1,000 MG/100 ML INFUS..BTL IV PRN (08:25)
[2020-03-21] MEDS: PANTOPRAZOLE SODIUM 40 MG VIAL IV SCH (09:27)
--- NOTE | 2020-03-21 09:28 | RADIOLOGY REPORT (SQ) ---
EXAM DESCRIPTION: CHEST SINGLE VIEW IMAGES COMPLETED DATE/TIME: 03/21/2020 5:35 am REASON FOR STUDY: ETT tube COMPARISON: Previous day. NUMBER OF VIEWS: One view. TECHNIQUE: Single frontal radiographic image of the chest acquired. LIMITATIONS: None. FINDINGS: LUNGS AND PLEURA: Stable appearance. No pneumothorax. MEDIASTINUM AND HEART: Stable heart size and mediastinal structures. SUPPORT DEVICES: Unchanged position of endotracheal tube. Nasogastric tube tip overlying stomach. BONY STRUCTURES: No acute findings. HARDWARE: None. OTHER: No other significant finding. IMPRESSION: Interval placement of nasogastric tube. Otherwise no significant change. Reading location - IP/workstation name: [email or web address]
[2020-03-21] MEDS ORDERED: VANCOMYCIN HCL INJ 1000 MG VIAL IV SCH (10:00)
[2020-03-21] MEDS ORDERED: VANCOMYCIN HCL 1,250 MG in DEXTROSE 5%-WATER 250 ML IV SCH (10:00)
[2020-03-21] MEDS: CARBIDOPA/LEVODOPA 25-100 MG TABLET PO SCH ×3 (12:25→21:03)
--- NOTE | 2020-03-21 14:31 | EKG REPORT ---
SEVERITY:- ABNORMAL ECG - SINUS OR ECTOPIC ATRIAL RHYTHM LEFT AXIS DEVIATION LOW VOLTAGE THROUGHOUT NONSPECIFIC T ABNORMALITIES, DIFFUSE LEADS BORDERLINE PROLONGED QT INTERVAL : Confirmed by: Simon Rubin MD 21-Mar-2020 14:30:29
[2020-03-21] MEDS: 1/2 NORMAL SALINE 1,000 ML with POTASSIUM CHLORIDE 40 MEQ IV PRN ×2 (19:25)
[2020-03-21] MEDS: DONEPEZIL HCL 5 MG TABLET PO SCH (21:03)
[2020-03-21] MEDS ORDERED: INSULIN GLARGINE,HUM.REC.ANLOG 1,000 UNIT/10 ML VIAL SUBCUT SCH (22:00)
[2020-03-22] MEDS: INSULIN LISPRO 100 UNIT/ML 3 ML VIAL SUBCUT SCH ×5 (00:01→23:10)
[2020-03-22 04:08] LABS: ABSOLUTE EOSINOPHILS # (AUTO) 0.2 10^3/uL (0.0-0.6); ABSOLUTE LYMPHOCYTES (AUTO) 0.5 10^3/uL (0.5-4.7); ABSOLUTE MONOCYTES (AUTO) 0.6 10^3/uL (0.1-1.4); ABSOLUTE NEUT (AUTO) 5.5 10^3/uL (1.7-8.2); BASOPHILS % (AUTO) 0.4 % (0-2); EOSINOPHILS % (AUTO) 3.6 % (0-6); HEMATOCRIT 36.3 % (37.9-51.0); HEMOGLOBIN 12.4 g/dL (13.5-17.0); LYMPHOCYTES % (AUTO) 7.8 % (13-45); MEAN CORPUSCULAR HEMOGLOBIN 29.9 pg (27.0-33.4); MEAN CORPUSCULAR HGB CONC 34.1 g/dL (32.0-36.0); MEAN CORPUSCULAR VOLUME 88 fl (80-97); MONOCYTES % (AUTO) 8.5 % (3-13); PLATELET COUNT 112 10^3/uL (150-450); RED BLOOD COUNT 4.15 10^6/uL (4.35-5.55); RED CELL DISTRIBUTION WIDTH 14.9 % (11.5-14.0); SEGMENTED NEUTROPHILS % (AUTO) 79.7 % (42-78); TOTAL CELLS COUNTED % (AUTO) 100 %; WHITE BLOOD COUNT 6.9 10^3/uL (4.0-10.5)
[2020-03-22 04:27] LABS: BLOOD UREA NITROGEN 25 mg/dL (7-20); CALCIUM 7.9 mg/dL (8.4-10.2); CARBON DIOXIDE 27 mmol/L (22-30); GLUCOSE 149 mg/dL (75-110); PHOSPHORUS 2.5 mg/dL (2.5-4.5); POTASSIUM 3.8 mmol/L (3.6-5.0)
[2020-03-22 04:32] LABS: CHLORIDE 121 mmol/L (98-107)
[2020-03-22 04:34] LABS: ANION GAP 2 (5-19)
[2020-03-22] MEDS: CARBIDOPA/LEVODOPA 25-100 MG TABLET PO SCH ×3 (05:04→22:38)
[2020-03-22] MEDS: HEPARIN SOD (PORCINE) 5,000 UNIT/ML 1 ML VIAL SUBCUT SCH ×3 (05:18→22:37)
[2020-03-22] MEDS: PIPERACILLIN SODIUM/TAZOBACTAM 4.5 GM in NORMAL SALINE 100 ML IV SCH ×3 (05:18→22:36)
--- NOTE | 2020-03-22 08:09 | PDOC CRITICAL CARE PROG REPORT ---
General Date:: 03/21/20 ICU Day:: 3 Ventilator Day:: 3 Hospital Day:: 3 Resuscitation Status: Do Not Resuscitate Events in the past 12 to 24 Hours:: 03/20: Ad[facility] a local [facility] yesterday with a suspected aspiration event. Intubated. Of note, family declared that the patient was DNR. If he is able to liberate from mechanical ventilatory support, this will be a one-way extubation. Sedated with propofol. Mildly hypotensive but maintaining MAP greater than 70. 03/21: Remains intubated. On PRVC, FiO2 30%. PEEP 8. Supposed to start Zosyn/vancomycin for empiric coverage of aspiration yesterday. This administration was delayed until earlier this morning. ABG this a.m.: 7.46/30 5/108. On free water supplementation. Sodium down to 151. Perhaps a little oversedated. Review of systems relevant to events:: Constitutional/renal: Dehydration, acute renal failure Respiratory: Aspiration pneumonia, airway compromise Endocrine: Type 2 diabetes Neurologic: Parkinson's disease with dementia Reason for ICU Addmission:: Intubated for airway protection - Medications: Medications reviewed and adjusted accordingly: Yes Sedation:: Propofol Physical Exam Vital Signs: Temp Pulse Resp BP Pulse Ox 99.0 F 85 16 102/81 98 03/19/20 18:13 03/20/20 19:00 03/21/20 12:00 03/21/20 11:56 03/21/20 12:00 Intake & Output 03/20/20 03/21/20 03/22/20 06:59 06:59 06:59 Intake Total 4044 1465 126 Output Total 635 705 350 Balance 3409 760 -224 Weight 60.8 kg 63.2 kg Weight/Height Weight 63.2 kg Height 1.8 m General appearance: PRESENT: no acute distress, well-developed, well-nourished, other - Intubated Head exam: PRESENT: atraumatic, normocephalic Eye exam: PRESENT: conjunctiva pink, EOMI, PERRLA - Sluggish. ABSENT: scleral icterus Mouth exam: PRESENT: moist, tongue midline Neck exam: ABSENT: carotid bruit, JVD, lymphadenopathy, thyromegaly Respiratory exam: PRESENT: decreased breath sounds - Improved significantly with suctioning, rales. ABSENT: rhonchi, wheezes Cardiovascular exam: PRESENT: RRR. ABSENT: diastolic murmur, rubs, systolic murmur Pulses: PRESENT: normal dorsalis pedis pul GI/Abdominal exam: PRESENT: normal bowel sounds, soft. ABSENT: distended, guarding, mass, organolmegaly, rebound, tenderness Gentrourinary exam: PRESENT: indwelling catheter Extremities exam: PRESENT: full ROM. ABSENT: calf tenderness, clubbing, pedal edema Neurological exam: PRESENT: CN II-XII grossly intact, motor sensory deficit - Does not follow commands of the left upper extremity. Psychiatric exam: ABSENT: agitated, anxious Skin exam: PRESENT: dry, intact, warm. ABSENT: cyanosis, rash Tubes/Lines: PRESENT: Endotracheal Tube Laboratory/Radiographs Laboratory Results: 03/21/20 05:39 03/21/20 05:39 03/21/20 03/21/20 03/21/20 05:30 05:39 05:39 WBC 9.0 RBC 4.53 Hgb 13.3 L Hct 40.2 MCV 89 MCH 29.4 MCHC 33.1 RDW 15.1 H Plt Count 112 L Seg Neutrophils % 81.2 H Carbonic Acid 1.05 HCO3/H2CO3 Ratio 22:1 ABG pH 7.46 H ABG pCO2 34.9 L ABG pO2 107.7 H ABG HCO3 24.0 ABG O2 Saturation 98.2 H ABG Base Excess 0.6 FiO2 30% Sodium 151.2 H Potassium 3.3 L Chloride 121 H Carbon Dioxide 28 Anion Gap 2 L BUN 31 H Creatinine 0.98 Est GFR ( Amer) > 60 Glucose 221 H Calcium 8.0 L Phosphorus 2.7 Magnesium 1.8 Ferritin 326.00 03/19/20 03/20/20 03/20/20 13:07 04:23 12:12 Troponin I 0.053 0.133 NT-Pro-B Natriuret Pep 539 H 03/21/20 05:39 Troponin I NT-Pro-B Natriuret Pep 469 H Impressions: KUB X-Ray 03/20/20 00:00 IMPRESSION: NG TUBE DESCRIBED. Chest X-Ray 03/21/20 05:00 IMPRESSION: Interval placement of nasogastric tube. Otherwise no significant change. All labs, radiographs, diagnostic studies and EKGs were personally reviewed: Yes In addition, reports of radiographic and diagnostic studies were read: Yes Assessment and Plan - Diagnosis (1) Respiratory failure requiring intubation Is this a current diagnosis for this admission?: Yes Plan: Continue duo nebs. Tracheal aspirate for Gram stain, C/S. On Zosyn/vancomycin for empiric coverage of aspiration. Pressure support trial today. Anticipate liberation from mechanical ventilatory support within 24 hours. (2) Elevated troponin I level Is this a current diagnosis for this admission?: Yes Plan: Repeat troponin. His troponin level is up trending without overt ischemic changes on EKG. (3) Abnormal chest x-ray Is this a current diagnosis for this admission?: Yes (4) Dehydration with hypernatremia Is this a current diagnosis for this admission?: Yes Plan: Free water 300 mL every 4 hours per NG tube. (5) Elevated brain natriuretic peptide (BNP) level Is this a current diagnosis for this admission?: Yes Plan: Repeat BNP in a.m. (6) ARF (acute renal failure) Qualifiers: Acute renal failure type: unspecified Qualified Code(s): N17.9 - Acute kidney failure, unspecified Is this a current diagnosis for this admission?: Yes (7) Thrombocytopenia Is this a current diagnosis for this admission?: Yes (8) Diabetes type 2, uncontrolled Qualifiers: Glycemic state: with hyperglycemia Qualified Code(s): E11.65 - Type 2 diabetes mellitus with hyperglycemia Is this a current diagnosis for this admission?: Yes Plan: Currently on Lantus 10 units subcutaneously nightly in addition to sliding scale insulin. (9) Hypokalemia Is this a current diagnosis for this admission?: Yes (10) Person under investigation for COVID-19 Is this a current diagnosis for this admission?: Yes Plan: Pending. Critical Time Critical Time (minutes): 90 Level of Care: ICU -: 1. The care of a critical patient is a dynamic process. This note is a field marketing representative synopsis but static in nature. The timeframe for treatments given in order is not necessarily the actual time these treatments may have been done. 2. This patient requires critical care secondary to ongoing requirements for therapy not offered or safe outside the critical care environment. Transfer to a lower level of care will result in altered life or limb morbidity and mortality. 3. Multidisciplinary rounds completed. 4. ABCDE bundle addressed.
[2020-03-22] MEDS: 1/2 NORMAL SALINE 1,000 ML with POTASSIUM CHLORIDE 40 MEQ IV PRN ×2 (08:32)
--- NOTE | 2020-03-22 09:08 | PDOC CRITICAL CARE PROG REPORT ---
General Date:: 03/22/20 ICU Day:: 4 Hospital Day:: 4 Resuscitation Status: Do Not Resuscitate Events in the past 12 to 24 Hours:: 03/20: Admitted from a local long term yesterday with a suspected aspiration event. Intubated. Of note, family declared that the patient was DNR. If he is able to liberate from mechanical ventilatory support, this will be a one-way extubation. Sedated with propofol. Mildly hypotensive but maintaining MAP gre ater than 70. 03/21: Remains intubated. On PRVC, FiO2 30%. PEEP 8. Supposed to start Zosyn/vancomycin for empiric coverage of aspiration yesterday. This administration was delayed until earlier this morning. ABG this a.m.: 7.46/30 5/108. On free water supplementation. Sodium down to 151. Perhaps a little oversedated. 03/22: Successfully extubated yesterday afternoon. On room air. Nonverbal at baseline. was updated at the bedside yesterday afternoon. Sodium 150. SARS-2-CoV test was negative. Review of systems relevant to events:: Constitutional/renal: Dehydration, acute renal failure Respiratory: Aspiration pneumonia, airway compromise Endocrine: Type 2 diabetes Neurologic: Parkinson's disease with dementia Reason for ICU Addmission:: Intubated for airway protection - Medications: Medications reviewed and adjusted accordingly: Yes Physical Exam Vital Signs: Temp Pulse Resp BP Pulse Ox 98.1 F 62 15 128/72 H 100 03/22/20 07:39 03/22/20 07:39 03/22/20 06:14 03/22/20 07:39 03/22/20 07:39 Intake & Output 03/21/20 03/22/20 03/23/20 06:59 06:59 06:59 Intake Total 5562 981 0841 Output Total 705 1535 125 Balance 760 -1009 1125 Weight 63.2 kg 58.8 kg Weight/Height Weight 58.8 kg Height 1.8 m General appearance: PRESENT: no acute distress, well-developed, well-nourished Head exam: PRESENT: atraumatic, normocephalic Eye exam: PRESENT: conjunctiva pink, EOMI, PERRLA. ABSENT: scleral icterus Mouth exam: PRESENT: moist, tongue midline Teeth exam: PRESENT: poor dentation Neck exam: ABSENT: carotid bruit, JVD, lymphadenopathy, thyromegaly Respiratory exam: PRESENT: clear to auscultation osmani. ABSENT: rales, rhonchi, wheezes Cardiovascular exam: PRESENT: RRR. ABSENT: diastolic murmur, rubs, systolic murmur Pulses: PRESENT: normal dorsalis pedis pul GI/Abdominal exam: PRESENT: normal bowel sounds, soft. ABSENT: distended, guarding, mass, organolmegaly, rebound, tenderness Extremities exam: PRESENT: full ROM. ABSENT: calf tenderness, clubbing, pedal edema Neurological exam: PRESENT: alert, awake, reflexes normal, CN II-XII grossly intact, motor sensory deficit - Left hemiplegia (left hand is much weaker than the left foot) Psychiatric exam: ABSENT: agitated, anxious Skin exam: PRESENT: dry, intact, warm. ABSENT: cyanosis, rash Laboratory/Radiographs Laboratory Results: 03/22/20 04:01 03/22/20 04:01 03/22/20 03/22/20 04:01 04:01 WBC 6.9 RBC 4.15 L Hgb 12.4 L Hct 36.3 L MCV 88 MCH 29.9 MCHC 34.1 RDW 14.9 H Plt Count 112 L Seg Neutrophils % 79.7 H Sodium 150.1 H Potassium 3.8 Chloride 121 H Carbon Dioxide 27 Anion Gap 2 L BUN 25 H Creatinine 1.01 Est GFR ( Amer) > 60 Glucose 149 H Calcium 7.9 L Phosphorus 2.5 Magnesium 1.9 03/19/20 03/20/20 03/20/20 13:07 04:23 12:12 Troponin I 0.053 0.133 NT-Pro-B Natriuret Pep 539 H 03/21/20 03/21/20 05:39 14:28 Troponin I 0.076 NT-Pro-B Natriuret Pep 469 H Impressions: KUB X-Ray 03/20/20 00:00 IMPRESSION: NG TUBE DESCRIBED. Chest X-Ray 03/21/20 05:00 IMPRESSION: Interval placement of nasogastric tube. Otherwise no significant change. All labs, radiographs, diagnostic studies and EKGs were personally reviewed: Yes In addition, reports of radiographic and diagnostic studies were read: Yes Assessment and Plan - Diagnosis (1) Respiratory failure requiring intubation Is this a current diagnosis for this admission?: Yes Plan: Continue duo nebs. Tracheal aspirate showed 4+ PMNs, 2+ budding yeast, 1+ GPR, rare GPC in pairs, but isolated yeast (not Promise albicans). Stop vancomycin. Stop Zosyn after 5-day course. Speech/swallow evaluation. (2) Elevated troponin I level Is this a current diagnosis for this admission?: Yes (3) Abnormal chest x-ray Is this a current diagnosis for this admission?: Yes (4) Dehydration with hypernatremia Is this a current diagnosis for this admission?: Yes Plan: Currently on 09/09 NS + 40 mEq KCl @ 80 mL/hr for maintenance IV. (5) Elevated brain natriuretic peptide (BNP) level Is this a current diagnosis for this admission?: Yes (6) ARF (acute renal failure) Qualifiers: Acute renal failure type: unspecified Qualified Code(s): N17.9 - Acute kidney failure, unspecified Is this a current diagnosis for this admission?: Yes (7) Thrombocytopenia Is this a current diagnosis for this admission?: Yes (8) Diabetes type 2, uncontrolled Qualifiers: Glycemic state: with hyperglycemia Qualified Code(s): E11.65 - Type 2 diabetes mellitus with hyperglycemia Is this a current diagnosis for this admission?: Yes (9) Hypokalemia Is this a current diagnosis for this admission?: Yes (10) COVID-19 ruled out by laboratory testing Is this a current diagnosis for this admission?: Yes Plan Summary: Okay for the floor from pulmonary/critical care standpoint. Critical Time Critical Time (minutes): 45 Level of Care: ICU -: 1. The care of a critical patient is a dynamic process. This note is a artist representative synopsis but static in nature. The timeframe for treatments given in order is not necessarily the actual time these treatments may have been done. 2. This patient requires critical care secondary to ongoing requirements for therapy not offered or safe outside the critical care environment. Transfer to a lower level of care will result in altered life or limb morbidity and mortality. 3. Multidisciplinary rounds completed. 4. ABCDE bundle addressed.
[2020-03-22] MEDS: PANTOPRAZOLE SODIUM 40 MG VIAL IV SCH (10:28)
--- NOTE | 2020-03-22 11:01 | Progress Note ---
Provider Note Provider Note: This patient was intubated for airway protection due to a GCS of 3, on March 19.
[2020-03-22] MEDS: DEXTROSE 5%-1/4 NORMAL SALINE 1,000 ML IV PRN (17:33)
--- NOTE | 2020-03-22 17:45 | PDOC PROGRESS REPORT ---
Subjective Progress Note for:: 03/22/20 Subjective:: ICU downgrade to general medical floor Signout received from vice president talent management. Patient is an 84-year-old male with a history of Parkinson's with advanced dementia, diabetes mellitus, who presented to the hospital initially with respiratory failure secondary to aspiration into airway. Patient was subsequently intubated and taken to the ICU. COVID-19 test was negative in the ICU. Patient was placed on antibiotics with suspicion that patient may develop aspiration pneumonia. However chest x-ray have been quite showed no pneumonia. Patient was later extubated. Patient has failed speech and swallowing evaluation. Baseline patient seems to be with advanced dementia and stares blankly and nonverbal. Patient currently on room air. Patient is DNR/DNI as per signout received. Family still yet to decide about how to move forward in terms of nutrition. Currently n.p.o. Reason For Visit: ARF,OBTUNDATION,SEVERE DEHYDRATION,ASPIRATION Physical Exam Vital Signs: Temp Pulse Resp BP Pulse Ox 98.2 F 63 15 124/62 99 03/22/20 15:48 03/22/20 15:48 03/22/20 16:15 03/22/20 16:15 03/22/20 16:15 Intake & Output 03/21/20 03/22/20 03/23/20 06:59 06:59 06:59 Intake Total 7518 005 9889 Output Total 705 1535 600 Balance 760 -1009 800 Weight 63.2 kg 58.8 kg General appearance: PRESENT: no acute distress, cooperative Respiratory exam: PRESENT: clear to auscultation osmani, unlabored. ABSENT: accessory muscle use, tachypnea Neurological exam: PRESENT: alert, awake, aphasic - nonverbal, other - does not interact during evaluation Psychiatric exam: ABSENT: agitated, anxious Results Laboratory Results: 03/22/20 04:01 03/22/20 04:01 03/22/20 03/22/20 04:01 04:01 WBC 6.9 RBC 4.15 L Hgb 12.4 L Hct 36.3 L MCV 88 MCH 29.9 MCHC 34.1 RDW 14.9 H Plt Count 112 L Seg Neutrophils % 79.7 H Sodium 150.1 H Potassium 3.8 Chloride 121 H Carbon Dioxide 27 Anion Gap 2 L BUN 25 H Creatinine 1.01 Est GFR ( Amer) > 60 Glucose 149 H Calcium 7.9 L Phosphorus 2.5 Magnesium 1.9 03/20/20 10:28 Tracheal Aspirate Gram Stain - Final 03/20/20 10:28 Tracheal Aspirate Sputum Culture - Final Yeast, Not Promise Albicans Normal Debbie 03/19/20 03/20/20 03/20/20 13:07 04:23 12:12 Troponin I 0.053 0.133 NT-Pro-B Natriuret Pep 539 H 03/21/20 03/21/20 05:39 14:28 Troponin I 0.076 NT-Pro-B Natriuret Pep 469 H Impressions: KUB X-Ray 03/20/20 00:00 IMPRESSION: NG TUBE DESCRIBED. Chest X-Ray 03/21/20 05:00 IMPRESSION: Interval placement of nasogastric tube. Otherwise no significant change. Assessment and Plan - Diagnosis (1) Aspiration into airway Qualifiers: Encounter type: initial encounter Qualified Code(s): T17.908A - Unspecified foreign body in respiratory tract, part unspecified causing other injury, initial encounter Is this a current diagnosis for this admission?: Yes (2) Dehydration with hypernatremia Is this a current diagnosis for this admission?: Yes (3) Advanced dementia Is this a current diagnosis for this admission?: Yes (4) Parkinson disease Is this a current diagnosis for this admission?: Yes (5) Diabetes type 2, uncontrolled Qualifiers: Glycemic state: with hyperglycemia Qualified Code(s): E11.65 - Type 2 diabetes mellitus with hyperglycemia Is this a current diagnosis for this admission?: Yes (6) Respiratory failure requiring intubation Is this a current diagnosis for this admission?: Yes (7) Thrombocytopenia Is this a current diagnosis for this admission?: Yes (8) Dysphagia, unspecified Qualifiers: Dysphagia type: pharyngeal phase Qualified Code(s): R13.13 - Dysphagia, pharyngeal phase Is this a current diagnosis for this admission?: Yes - Plan Summary Summary: 03/22/2020 Patient is nonverbal and not mobile at baseline. Has advanced dementia secondary to Parkinson's disease. Informed that patient failed swallow evaluation Patient is high risk for aspiration. Currently on Zosyn for prevention of aspiration pneumonia. Aspiration precautions Keep n.p.o. Hypernatremic at 150 secondary to dehydration. Will change IV fluids to D5 1/4 saline solution. Check BMP in the morning Will have to have an elaborate discussion with family about what we will do for nutrition. Options are hospice or comfort feeds running high risk of recurrent aspiration and asphyxiation or PEG tube. - Time Time Spent with patient: Less than 15 minutes
[2020-03-22] MEDS: DONEPEZIL HCL 5 MG TABLET PO SCH (22:36)
[2020-03-22] MEDS: INSULIN GLARGINE,HUM.REC.ANLOG 1,000 UNIT/10 ML VIAL SUBCUT SCH (23:11)
--- NOTE | 2020-03-23 01:59 | XCELERA REPORT ---
[address] [address] Transthoracic Echocardiogram Report Name: FERN SAENZ Age: 84 yrs Gender: Male : 1935 Patient Status: Inpatient Patient Location: ICU^601^A Study Date: 03/20/2020 01:46 PM Reason For Study: Elevated BNP troponin; respiratory failure Ordering Physician: MANN DEJESUS Performed By: Stephanie Price Interpretation Summary This echo is NON diagnostic.Unable to render any interpretation. This echo is NON diagnostic.Unable to render any interpretation. : MANN DEJESUS Lakshmi
[2020-03-23] MEDS: PIPERACILLIN SODIUM/TAZOBACTAM 4.5 GM in NORMAL SALINE 100 ML IV SCH ×3 (05:25→22:28)
[2020-03-23] MEDS: HEPARIN SOD (PORCINE) 5,000 UNIT/ML 1 ML VIAL SUBCUT SCH ×3 (05:27→22:30)
[2020-03-23] MEDS: CARBIDOPA/LEVODOPA 25-100 MG TABLET PO SCH ×3 (05:28→22:32)
[2020-03-23 05:46] LABS: BLOOD UREA NITROGEN 20 mg/dL (7-20); CALCIUM 7.8 mg/dL (8.4-10.2); CHLORIDE 117 mmol/L (98-107); GLUCOSE 217 mg/dL (75-110); POTASSIUM 3.6 mmol/L (3.6-5.0)
[2020-03-23 05:52] LABS: CARBON DIOXIDE 26 mmol/L (22-30)
[2020-03-23 05:56] LABS: ANION GAP 2 (5-19)
[2020-03-23] MEDS: INSULIN LISPRO 100 UNIT/ML 3 ML VIAL SUBCUT SCH ×3 (06:20→17:52)
[2020-03-23] MEDS: DEXTROSE 5%-1/4 NORMAL SALINE 1,000 ML IV PRN (07:58)
[2020-03-23] MEDS: PANTOPRAZOLE SODIUM 40 MG VIAL IV SCH (09:24)
--- NOTE | 2020-03-23 15:24 | PDOC PROGRESS REPORT ---
Subjective Progress Note for:: 03/23/20 Subjective:: No subjective obtainable. Reason For Visit: ARF,OBTUNDATION,SEVERE DEHYDRATION,ASPIRATION Physical Exam Vital Signs: Temp Pulse Resp BP Pulse Ox 98.2 F 67 16 123/69 97 03/23/20 11:30 03/23/20 11:30 03/23/20 11:30 03/23/20 11:30 03/23/20 11:30 Intake & Output 03/22/20 03/23/20 03/24/20 06:59 06:59 06:59 Intake Total 526 2600 0 Output Total 1535 1500 200 Balance -1009 1100 -200 Weight 58.8 kg 58.5 kg General appearance: PRESENT: no acute distress, cooperative Neck exam: ABSENT: JVD Respiratory exam: PRESENT: symmetrical, unlabored. ABSENT: tachypnea, wheezes GI/Abdominal exam: PRESENT: soft. ABSENT: rebound, rigid, tenderness Neurological exam: PRESENT: alert, awake, aphasic - Nonverbal. ABSENT: oriented to person, oriented to place, oriented to time, oriented to situation Results Laboratory Results: 03/22/20 04:01 03/23/20 04:21 03/23/20 04:21 Sodium 144.8 Potassium 3.6 Chloride 117 H Carbon Dioxide 26 Anion Gap 2 L BUN 20 Creatinine 0.98 Est GFR ( Amer) > 60 Glucose 217 H Calcium 7.8 L 03/19/20 03/20/20 03/20/20 13:07 04:23 12:12 Troponin I 0.053 0.133 NT-Pro-B Natriuret Pep 539 H 03/21/20 03/21/20 05:39 14:28 Troponin I 0.076 NT-Pro-B Natriuret Pep 469 H Impressions: KUB X-Ray 03/20/20 00:00 IMPRESSION: NG TUBE DESCRIBED. Chest X-Ray 03/21/20 05:00 IMPRESSION: Interval placement of nasogastric tube. Otherwise no significant change. Assessment and Plan - Diagnosis (1) Aspiration into airway Qualifiers: Encounter type: initial encounter Qualified Code(s): T17.908A - Unspecified foreign body in respiratory tract, part unspecified causing other injury, initial encounter Is this a current diagnosis for this admission?: Yes (2) Dehydration with hypernatremia Is this a current diagnosis for this admission?: Yes (3) Advanced dementia Is this a current diagnosis for this admission?: Yes (4) Parkinson disease Is this a current diagnosis for this admission?: Yes (5) Diabetes type 2, uncontrolled Qualifiers: Glycemic state: with hyperglycemia Qualified Code(s): E11.65 - Type 2 diabetes mellitus with hyperglycemia Is this a current diagnosis for this admission?: Yes (6) Respiratory failure requiring intubation Is this a current diagnosis for this admission?: Yes (7) Thrombocytopenia Is this a current diagnosis for this admission?: Yes (8) Dysphagia, unspecified Qualifiers: Dysphagia type: pharyngeal phase Qualified Code(s): R13.13 - Dysphagia, pharyngeal phase Is this a current diagnosis for this admission?: Yes - Plan Summary Summary: 03/22/2020 Patient is nonverbal and not mobile at baseline. Has advanced dementia secondary to Parkinson's disease. Informed that patient failed swallow evaluation Patient is high risk for aspiration. Currently on Zosyn for prevention of aspiration pneumonia. Aspiration precautions Keep n.p.o. Hypernatremic at 150 secondary to dehydration. Will change IV fluids to D5 1/4 saline solution. Check BMP in the morning Will have to have an elaborate discussion with family about what we will do for nutrition. Options are hospice or comfort feeds running high risk of recurrent aspiration and asphyxiation or PEG tube. 03/23/2020 Patient's hypernatremia has resolved. I will change IV fluids to D5 half-normal saline at 80 cc/h I discussed with patient's son who states that he and patient's would like to go ahead with the PEG tube placement. Still waiting on patient's to come to the hospital so I can discuss with her in person. I have raised hospice with patient's son I will discuss this with patient's as well when she arrives. Continue Unasyn for today. Will likely discontinue soon. - Time Time Spent with patient: 15-24 minutes
--- NOTE | 2020-03-23 15:26 | ADVANCED CARE ---
- Diagnosis (1) Aspiration into airway Diagnosis Current: Yes (3) Advanced dementia Diagnosis Current: Yes Resuscitation Status: Do Not Resuscitate Discussion: Discussed in detail goals of care, PEG tube and nutrition source for patient with patient's son. Patient is DNR/DNI. Discussed hospice with patient's son. Son seems favorable to hospice but states that patient's would like for PEG tube to be placed to give him some source of nutrition while letting other natural causes take him. I will wait on patient's to arrive so I can talk to denisha well about these issues. Time Spent: 17mins
[2020-03-23] MEDS: DEXTROSE 5%-1/2 NORMAL SALINE 1,000 ML IV PRN (17:53)
--- NOTE | 2020-03-23 20:47 | PDOC CONSULTATION ---
Consultation Consult Date: 03/23/20 Provider Consulted: CHUY KEARNEY Consult reason:: PEG tube placement History of Present Illness Admission Date/PCP: 03/19/20 14:54 TRELL KENNEY MD History of Present Illness: FERN SAENZ is a 84 year old male with advanced dementia and Parkinson's, uncontrolled diabetes mellitus, episodes of aspiration who failed swallowing test in the past, patient's and family request PEG tube placement for nutrition. Past Medical History Cardiac Medical History: Reports: Hypertension - not lately Denies: Myocardial Infarction Pulmonary Medical History: Denies: Asthma Neurological Medical History: Denies: Seizures Endocrine Medical History: Reports: Diabetes Mellitus Type 1 GI Medical History: Denies: Hepatitis, Hiatal Hernia Psychiatric Medical History: Reports: Dementia Denies: Depression Hematology: Denies: Anemia, Sickle Cell Disease Past Surgical History Past Surgical History: Denies: Pacemaker Social History Lives with: Assisted Smoking Status: Unknown if Ever Smoked Frequency of Alcohol Use: None Hx Recreational Drug Use: No Drugs: None Hx Prescription Drug Abuse: No - Advance Directive Resuscitation Status: Do Not Resuscitate Family History Family History: Reviewed & Not Pertinent Parental Family History Reviewed: Yes Children Family History Reviewed: No Sibling(s) Family History Reviewed.: No Medication/Allergy Home Medications: Atorvastatin Calcium 20 mg PO QHS 12/23/14 Finasteride 5 mg PO QHS 12/23/14 Sitagliptin Phos/Metformin HCl [Janumet 50-500 mg Tablet] 1 tab PO BID 12/23/14 Aspirin [Adult Low Dose Aspirin EC] 162 mg PO DAILY 03/20/20 Carbidopa/Levodopa [Sinemet 25-100 mg Tablet] 1 tab PO Q8 03/20/20 Ceftriaxone Sodium [Rocephin Inj 1000 mg Vial] 1 gm IM DAILY 03/20/20 Donepezil HCl 10 mg PO QPM 03/20/20 Insulin Glargine,Hum.rec.anlog [Lantus Insulin 100 Unit/1 ml 10 ml] 10 unit SQ QHS 03/20/20 Allergies/Adverse Reactions: No Known Allergies Allergy (Unverified 12/23/14 10:01) Review of Systems ROS unobtainable: Due to mental status Physical Exam Vital Signs: Temp Pulse Resp BP Pulse Ox 97.8 F 69 16 113/63 96 03/23/20 19:48 03/23/20 19:48 03/23/20 19:48 03/23/20 19:48 03/23/20 19:48 Intake & Output 03/22/20 03/23/20 03/24/20 06:59 06:59 06:59 Intake Total 526 2600 893 Output Total 1535 1500 500 Balance -1009 1100 393 Weight 58.8 kg 58.5 kg General appearance: PRESENT: other - Nonresponsive GI/Abdominal exam: PRESENT: soft - Nontender Focused psych exam: PRESENT: catatonic Skin exam: PRESENT: normal color, warm Results Laboratory Results: 03/22/20 04:01 03/23/20 04:21 03/23/20 04:21 Sodium 144.8 Potassium 3.6 Chloride 117 H Carbon Dioxide 26 Anion Gap 2 L BUN 20 Creatinine 0.98 Est GFR ( Amer) > 60 Glucose 217 H Calcium 7.8 L 03/19/20 03/20/20 03/20/20 13:07 04:23 12:12 Troponin I 0.053 0.133 NT-Pro-B Natriuret Pep 539 H 03/21/20 03/21/20 05:39 14:28 Troponin I 0.076 NT-Pro-B Natriuret Pep 469 H Impressions: KUB X-Ray 03/20/20 00:00 IMPRESSION: NG TUBE DESCRIBED. Chest X-Ray 03/21/20 05:00 IMPRESSION: Interval placement of nasogastric tube. Otherwise no significant change. Assessment & Plan - Diagnosis (1) ARF (acute renal failure) Qualifiers: Acute renal failure type: unspecified Qualified Code(s): N17.9 - Acute kidney failure, unspecified Is this a current diagnosis for this admission?: Yes (2) Advanced dementia Is this a current diagnosis for this admission?: Yes (3) Diabetes type 2, uncontrolled Qualifiers: Glycemic state: with hyperglycemia Qualified Code(s): E11.65 - Type 2 diabetes mellitus with hyperglycemia Is this a current diagnosis for this admission?: Yes (4) Parkinson disease Is this a current diagnosis for this admission?: Yes (5) Dysphagia, unspecified Qualifiers: Dysphagia type: pharyngeal phase Qualified Code(s): R13.13 - Dysphagia, pharyngeal phase Is this a current diagnosis for this admission?: Yes - Time Time Spent: 30 to 50 Minutes - Plan Summary Plan Summary: 84-year-old male with recurrent intubation for aspiration, history of advanced dementia and Parkinson's disease, diabetes mellitus, patient's and family request PEG tube placement for nutrition. Have discussed procedure with his on the phone and given also the risks. She consents to the placement of PEG tube by Dr. Vargas tomorrow.
[2020-03-23] MEDS: DONEPEZIL HCL 5 MG TABLET PO SCH (22:31)
[2020-03-24] MEDS: INSULIN GLARGINE,HUM.REC.ANLOG 1,000 UNIT/10 ML VIAL SUBCUT SCH (00:23)
[2020-03-24] MEDS: INSULIN LISPRO 100 UNIT/ML 3 ML VIAL SUBCUT SCH ×3 (00:23→11:59)
[2020-03-24] MEDS: DEXTROSE 5%-1/2 NORMAL SALINE 1,000 ML IV PRN (05:42)
[2020-03-24] MEDS: PIPERACILLIN SODIUM/TAZOBACTAM 4.5 GM in NORMAL SALINE 100 ML IV SCH (05:43)
[2020-03-24] MEDS: HEPARIN SOD (PORCINE) 5,000 UNIT/ML 1 ML VIAL SUBCUT SCH (05:46)
[2020-03-24] MEDS: CARBIDOPA/LEVODOPA 25-100 MG TABLET PO SCH ×2 (05:46→14:11)
[2020-03-24] MEDS ORDERED: 1/2 NORMAL SALINE 1,000 ML IV PRN (07:44)
[2020-03-24] MEDS: PANTOPRAZOLE SODIUM 40 MG VIAL IV SCH (09:37)
--- NOTE | 2020-03-24 09:46 | PDOC PROGRESS REPORT ---
Subjective Progress Note for:: 03/24/20 Subjective:: This is an 84-year-old male with dementia. He has dysphagia, evidence of aspiration, and inanition. The patient will require a gastrostomy in order for feedings to resume. The patient is nonverbal, and does not relay any pertinent review of systems. I have discussed the situation with the nurse. She denies any fevers, chills, shortness of breath, or significant developments in the last 24 hours. Reason For Visit: ARF,OBTUNDATION,SEVERE DEHYDRATION,ASPIRATION Physical Exam Vital Signs: Temp Pulse Resp BP Pulse Ox 97.6 F 60 20 97/50 L 97 03/24/20 07:29 03/24/20 07:29 03/24/20 07:29 03/24/20 07:29 03/24/20 07:29 Intake & Output 03/23/20 03/24/20 03/25/20 06:59 06:59 06:59 Intake Total 2600 2038 Output Total 1500 1320 Balance 1100 718 Weight 58.5 kg 58.4 kg General appearance: PRESENT: no acute distress, thin Head exam: PRESENT: atraumatic, normocephalic Eye exam: ABSENT: scleral icterus Mouth exam: PRESENT: moist, neck supple Neck exam: ABSENT: tracheal deviation, tracheostomy Respiratory exam: PRESENT: unlabored. ABSENT: tachypnea Cardiovascular exam: ABSENT: tachycardia GI/Abdominal exam: PRESENT: soft. ABSENT: distended, firm, guarding, tenderness Rectal exam: PRESENT: deferred Neurological exam: PRESENT: awake. ABSENT: oriented to person, oriented to place, oriented to time, oriented to situation Psychiatric exam: PRESENT: other - Nonverbal. ABSENT: agitated, anxious Focused psych exam: PRESENT: other - Nonverbal Skin exam: ABSENT: erythema, jaundice Results Laboratory Results: 03/22/20 04:01 03/23/20 04:21 03/19/20 03/20/20 03/20/20 13:07 04:23 12:12 Troponin I 0.053 0.133 NT-Pro-B Natriuret Pep 539 H 03/21/20 03/21/20 05:39 14:28 Troponin I 0.076 NT-Pro-B Natriuret Pep 469 H Impressions: KUB X-Ray 03/20/20 00:00 IMPRESSION: NG TUBE DESCRIBED. Chest X-Ray 03/21/20 05:00 IMPRESSION: Interval placement of nasogastric tube. Otherwise no significant change. Assessment & Plan - Diagnosis (1) Inanition Is this a current diagnosis for this admission?: Yes (2) Dysphagia, unspecified Qualifiers: Dysphagia type: pharyngeal phase Qualified Code(s): R13.13 - Dysphagia, pha ryngeal phase Is this a current diagnosis for this admission?: Yes - Plan Summary Plan Summary: This is an 84-year-old male with dementia, dysphasia, evidence of aspiration, and inanition. Plan is for PEG tube placement today. Yesterday, the procedure was discussed with the patient's family. Risks and benefits were relayed. Risks include (but are not limited to) damage to other internal structures, perforated intestine, dislodgment of gastrostomy, intra-abdominal sepsis, aspiration pneumonia, need for further surgery, and even .
[2020-03-24] MEDS ORDERED: PROPOFOL INJ 200 MG/20 ML VIAL IV ONE (10:16)
--- NOTE | 2020-03-24 11:25 | Operative Report ---
Nonrecallable Operative Report DATE OF SURGERY: 03/24/20 PREOPERATIVE DIAGNOSIS: 1. inanition. 2. Dysphasia. 3. Aspiration. POSTOPERATIVE DIAGNOSIS: 1., #2, and #3: Same as above. 4. Intrathoracic stomach, unable to perform percutaneous gastrostomy. OPERATION: EGD SURGEON: AB COLÓN ANESTHESIA: LMAC TISSUE REMOVED OR ALTERED: None COMPLICATIONS: Transillumination demonstrated the distal stomach within, or very close to the thoracic cavity. There was no subxiphoid window for placement of PEG tube. ESTIMATED BLOOD LOSS: None PROCEDURE: Drains/implants: None. Procedure in detail: After informed consent was obtained from the patient's family, he was brought to the operating room and laid in the supine position. The endoscope was passed down the oropharynx, down the esophagus, and into the stomach. The stomach was insufflated with air. Immediately there was noted to be mild gastritis throughout the body of the stomach. Transillumination was then attempted. The proximal stomach transilluminated within the thoracic cavity. The scope was pushed through the stomach, to the prepyloric position. Transillumination was again attempted. Transillumination was found on the lower thoracic cavity. An attempt was made to confirm an abdominal position with one-to-one ballottement and continued transillumination. This was unsuccessful. 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 No window could be found to place the percutaneous gastrostomy. In light of this, I have discussed care with the patient's family. I have recommended a feeding jejunostomy. They would like to discuss this amongst themselves. The procedure was then aborted so that the family may make decisions, in light of this new information. All sponge, instrument, and needle counts were correct. Condition: Fair.
[2020-03-24 12:28] VITALS: BP 145/54
[2020-03-24] MEDS ORDERED: ACETAMINOPHEN 650 MG SUPP.RECT PR PRN (13:47)
[2020-03-24] MEDS ORDERED: LORAZEPAM INJ 2 MG/1 ML VIAL IV PRN (15:41)
[2020-03-24] MEDS ORDERED: MORPHINE SULFATE 10 MG/ML INJ IV PRN (15:41)
--- NOTE | 2020-03-24 15:41 | PDOC PROGRESS REPORT ---
Subjective Progress Note for:: 03/24/20 Subjective:: Subjective not obtainable given advanced dementia. Reason For Visit: ARF,OBTUNDATION,SEVERE DEHYDRATION,ASPIRATION Physical Exam Vital Signs: Temp Pulse Resp BP Pulse Ox 97.4 F 44 L 12 145/54 H 98 03/24/20 12:27 03/24/20 12:27 03/24/20 12:27 03/24/20 12:27 03/24/20 12:27 Intake & Output 03/23/20 03/24/20 03/25/20 06:59 06:59 06:59 Intake Total 2600 2038 500 Output Total 1500 1320 100 Balance 1100 718 400 Weight 58.5 kg 58.4 kg General appearance: PRESENT: no acute distress, cooperative, thin. ABSENT: disheveled, well-nourished Respiratory exam: PRESENT: clear to auscultation osmani, symmetrical, unlabored. ABSENT: tachypnea Cardiovascular exam: PRESENT: RRR, +S1, +S2. ABSENT: tachycardia Neurological exam: PRESENT: alert, awake, aphasic - Nonverbal. ABSENT: oriented to person, oriented to place, oriented to time, oriented to situation Results Laboratory Results: 03/22/20 04:01 03/23/20 04:21 03/19/20 13:07 Blood Blood Culture - Final NO GROWTH IN 5 DAYS 03/19/20 03/20/20 03/20/20 13:07 04:23 12:12 Troponin I 0.053 0.133 NT-Pro-B Natriuret Pep 539 H 03/21/20 03/21/20 05:39 14:28 Troponin I 0.076 NT-Pro-B Natriuret Pep 469 H Impressions: KUB X-Ray 03/20/20 00:00 IMPRESSION: NG TUBE DESCRIBED. Chest X-Ray 03/21/20 05:00 IMPRESSION: Interval placement of nasogastric tube. Otherwise no significant change. Assessment and Plan - Diagnosis (1) Aspiration into airway Qualifiers: Encounter type: initial encounter Qualified Code(s): T17.908A - Unspecified foreign body in respiratory tract, part unspecified causing other injury, initial encounter Is this a current diagnosis for this admission?: Yes (2) Dehydration with hypernatremia Is this a current diagnosis for this admission?: Yes (3) Advanced dementia Is this a current diagnosis for this admission?: Yes (4) Parkinson disease Is this a current diagnosis for this admission?: Yes (5) Diabetes type 2, uncontrolled Qualifiers: Glycemic state: with hyperglycemia Qualified Code(s): E11.65 - Type 2 diabetes mellitus with hyperglycemia Is this a current diagnosis for this admission?: Yes (6) Respiratory failure requiring intubation Is this a current diagnosis for this admission?: Yes (7) Thrombocytopenia Is this a current diagnosis for this admission?: Yes (8) Dysphagia, unspecified Qualifiers: Dysphagia type: pharyngeal phase Qualified Code(s): R13.13 - Dysphagia, pharyngeal phase Is this a current diagnosis for this admission?: Yes - Plan Summary Summary: 03/22/2020 Patient is nonverbal and not mobile at baseline. Has advanced dementia secondary to Parkinson's disease. Informed that patient failed swallow evaluation Patient is high risk for aspiration. Currently on Zosyn for prevention of aspiration pneumonia. Aspiration precautions Keep n.p.o. Hypernatremic at 150 secondary to dehydration. Will change IV fluids to D5 1/4 saline solution. Check BMP in the morning Will have to have an elaborate discussion with family about what we will do for nutrition. Options are hospice or comfort feeds running high risk of recurrent aspiration and asphyxiation or PEG tube. 03/23/2020 Patient's hypernatremia has resolved. I will change IV fluids to D5 half-normal saline at 80 cc/h I discussed with patient's son who states that he and patient's would like to go ahead with the PEG tube placement. Still waiting on patient's to come to the hospital so I can discuss with her in person. I have raised hospice with patient's son I will discuss this with patient's as well when she arrives. Continue Unasyn for today. Will likely discontinue soon. 03/24/2020 Patient was taken to the OR today for PEG tube placement. However the procedure was unsuccessful as patient had significant amount of hernia. As a result the procedure was aborted. The other recommended option per surgery is J-tube placement. After having a very elaborate discussion between myself, patient's and patient's son both at bedside, they have made the decision to proceed with hospice care and forego further attempts at J tube placement. I have consulted habitat conservation planner to work on hospice placement. Patient is on medication for pain and anxiety. We will proceed with hospice ca re. DNR/DNI. - Time Time Spent with patient: 15-24 minutes Anticipated discharge: Hospice Within: within 24 hours
[2020-03-24] MEDS ORDERED: INSULIN GLARGINE,HUM.REC.ANLOG 1,000 UNIT/10 ML VIAL SUBCUT SCH (22:00)
--- NOTE | 2020-03-25 11:07 | PDOC TRANSFER SUMMARY ---
General - Admit/Disc Date/PCP Admission Date/Primary Care Provider: 03/19/20 14:54 TRELL KENNEY MD Discharge Date: 03/25/20 - Discharge Diagnosis (1) Aspiration into airway Is this a current diagnosis for this admission?: Yes (2) Dehydration with hypernatremia Is this a current diagnosis for this admission?: Yes (3) Advanced dementia Is this a current diagnosis for this admission?: Yes (4) Parkinson disease Is this a current diagnosis for this admission?: Yes (5) Diabetes type 2, uncontrolled Is this a current diagnosis for this admission?: Yes (6) Respiratory failure requiring intubation Is this a current diagnosis for this admission?: Yes (7) Thrombocytopenia Is this a current diagnosis for this admission?: Yes (8) Dysphagia, unspecified Is this a current diagnosis for this admission?: Yes - Additional Information Resuscitation Status: Do Not Resuscitate Prescriptions: Lorazepam [Ativan 1 mg Tablet] 1 mg SL Q3HP PRN #10 tab PRN Reason: Hyoscyamine Sulfate [Levsin 0.125 Tablet] 0.125 mg SL Q3HP PRN #20 tablet PRN Reason: Morphine Sulfate [Morphine Oral Soln 10 Mg/5 Ml Udcup] 5 mg PO Q4HP PRN #7 udc PRN Reason: Acetaminophen [Tylenol 650 mg Supp] 650 mg MA Q4HP PRN #30 supp.rect PRN Reason: Home Medications: Acetaminophen [Tylenol 650 mg Supp] 650 mg MA Q4HP PRN #30 supp.rect 03/25/20 Hyoscyamine Sulfate [Levsin 0.125 Tablet] 0.125 mg SL Q3HP PRN #20 tablet 03/25/20 Lorazepam [Ativan 1 mg Tablet] 1 mg SL Q3HP PRN #10 tab 03/25/20 Morphine Sulfate [Morphine Oral Soln 10 Mg/5 Ml Udcup] 5 mg PO Q4HP PRN #7 udc 03/25/20 History of Present Illness Admission Date/PCP: 03/19/20 14:54 TRELL KENNEY MD History of Present Illness: According to admitting provider: This patient is from a local OR. He has a hx of Parkinson's disease, demaentia (Parkinson's dementia?), DM-II, dehydration, a spiration by a recent MBS. Family says he has not eaten well for about a month. Comes to the ED with fever, obtundation, mottling, high BG and is intubated for airway protection. Family provides much info. They are aware of how sick he is and that this could be a final illness. As such they are fine with intubation for now, no CPR or defibrillation. Hold treatment as is. They will try to find his living will. Hospital Course Hospital Course: Patient is an 84-year-old male with a history of Parkinson's with advanced dementia, diabetes mellitus, who presented to the hospital initially with respiratory failure secondary to aspiration into airway. Patient was subsequently intubated and taken to the ICU. COVID-19 test was negative in the ICU. Patient was placed on antibiotics with suspicion that patient may develop aspiration pneumonia. However chest x-ray have been quite showed no pneumonia. Patient was later extubated. Patient has failed speech and swallowing evaluation. Baseline patient seems to be with advanced dementia and stares dg nkly and nonverbal. Patient currently on room air. Patient is DNR/DNI as per signout received. Family still yet to decide about how to move forward in terms of nutrition. On the general medical floor, his hypernatremia was corrected with D5 one quarter saline solution. Extensive discussion was made with family regarding patient's nutrition given that patient had failed his swallow test miserably even before admission. Initial decision was to pursue PEG tube. Attempts at PEG tube placement was unsuccessful due to patient having large amount of his stomach herniated into his thoracic cavity. Discussed the other option being J- tube. Also had another advanced care planning discussion at which point, patient's and patient's son made the joint decision to proceed with hospice care and forgo placement of a J-tube. Physical Exam Vital Signs: Temp Pulse Resp BP Pulse Ox 97.4 F 44 L 12 145/54 H 98 03/24/20 12:27 03/24/20 12:27 03/24/20 12:27 03/24/20 12:27 03/24/20 12:27 Intake & Output 03/24/20 03/25/20 03/26/20 06:59 06:59 06:59 Intake Total 2038 500 Output Total 1320 750 Balance 718 -250 Weight 58.4 kg 58.2 kg General appearance: PRESENT: no acute distress, cooperative Neck exam: ABSENT: JVD Respiratory exam: PRESENT: clear to auscultation osmani, unlabored. ABSENT: wheezes Neurological exam: PRESENT: alert, altered, awake, aphasic - Completely nonverbal. ABSENT: oriented to person, oriented to place, oriented to time, oriented to situation, motor sensory deficit - Not mobile Results Laboratory Results: 03/22/20 04:01 03/23/20 04:21 03/19/20 15:45 Blood Blood Culture - Final NO GROWTH IN 5 DAYS 03/19/20 13:07 Blood Blood Culture - Final NO GROWTH IN 5 DAYS 03/19/20 03/20/20 03/20/20 13:07 04:23 12:12 Troponin I 0.053 0.133 NT-Pro-B Natriuret Pep 539 H 03/21/20 03/21/20 05:39 14:28 Troponin I 0.076 NT-Pro-B Natriuret Pep 469 H Impressions: KUB X-Ray 03/20/20 00:00 IMPRESSION: NG TUBE DESCRIBED. Chest X-Ray 03/21/20 05:00 IMPRESSION: Interval placement of nasogastric tube. Otherwise no significant change. Transfer Plan - Time Spent with Patient Time spent with patient: Less than 30 Minutes Qualifiers PATIENT BEING DISCHARGED WITH ANY OF THE FOLLOWING DIAGNOSIS: No Plan Time Spent: Less than 30 Minutes
== END 2020-03-25 11:10 | disposition hospice, inpatient (51) | DRG 208 ==
LOC: ER 12:57 → EH 14:54 → ICU 16:57 → 4N 03-22 17:23
PROVIDERS: ADMIT Internal Medicine; ATTEND Internal Medicine
PROC: 5A1945Z Respiratory Ventilation, 24-96 Consecutive Hours (ICD-10-PCS; principal; 2020-03-19)
PROC: 0BH17EZ Insertion of Endotracheal Airway into Trachea, Via Natural or Artificial Opening (ICD-10-PCS; 2020-03-19)
PROC: 0DJ08ZZ Inspection of Upper Intestinal Tract, Via Natural or Artificial Opening Endoscopic (ICD-10-PCS; 2020-03-24)
DX: T17.908A Unspecified foreign body in respiratory tract, part unspecified causing other injury, initial encounter (principal); N17.9 Acute kidney failure, unspecified; E87.0 Hyperosmolality and hypernatremia; Z20.828 Contact with and (suspected) exposure to other viral communicable diseases; G20 Parkinson's disease; F02.80 Dementia in other diseases classified elsewhere, unspecified severity, without behavioral disturbance, psychotic disturbance, mood disturbance, and anxiety; E86.0 Dehydration; E11.65 Type 2 diabetes mellitus with hyperglycemia; Z66 Do not resuscitate; D69.6 Thrombocytopenia, unspecified; I10 Essential (primary) hypertension; K29.70 Gastritis, unspecified, without bleeding; K44.9 Diaphragmatic hernia without obstruction or gangrene; R13.13 Dysphagia, pharyngeal phase; R79.89 Other specified abnormal findings of blood chemistry; R40.2432 Glasgow coma scale score 3-8, at arrival to emergency department; E87.6 Hypokalemia; Z78.1 Physical restraint status; Z79.899 Other long term (current) drug therapy; Z79.4 Long term (current) use of insulin; Z79.82 Long term (current) use of aspirin; Z11.59 Encounter for screening for other viral diseases
CPT/HCPCS: 31500; 36415; 43235; 51702; 71045; 731; 74018; 80048; 80053; 81001; 82728; 82803; 82962; 83520; 83605; 83615; 83690; 83735; 83880; 84100; 84478; 84484; 85025; 85379; 85610; 87040; 87070; 87086; 87088; 87186; 87205; 87635; 93005; 93010; 93306; 94002; 94003; 96360; 96361; 99291; 99292; C9113; C9803; J1644; J1815; J2543; J2704; J3370; J3480; J3490; J7030; J7050; J7060; J7120